=== PATIENT | female | born 1965 | race American Indian/Alaskan Native ===

== ENCOUNTER 2019-11-14 09:47 | Inpatient (IN) | payer MEDICAID, OTHER ==
[2019-11-21 16:42] VITALS: BP 161/73
== END 2019-11-21 18:00 | disposition home or self-care (01) | DRG 622 ==
LOC: ED 09:47 → 4A 14:58
PROVIDERS: ADMIT Internal Medicine; ATTEND Internal Medicine
PROC: 0JBQ0ZZ Excision of Right Foot Subcutaneous Tissue and Fascia, Open Approach (ICD-10-PCS; 2019-11-16)
PROC: 4A033R1 Measurement of Arterial Saturation, Peripheral, Percutaneous Approach (ICD-10-PCS; principal; 2019-11-20)
DX: E11.69 Type 2 diabetes mellitus with other specified complication (principal); I50.43 Acute on chronic combined systolic (congestive) and diastolic (congestive) heart failure; J96.01 Acute respiratory failure with hypoxia; J96.02 Acute respiratory failure with hypercapnia; Z68.41 Body mass index [BMI] 40.0-44.9, adult; M86.8X7 Other osteomyelitis, ankle and foot; L02.611 Cutaneous abscess of right foot; E66.2 Morbid (severe) obesity with alveolar hypoventilation; E11.628 Type 2 diabetes mellitus with other skin complications; I11.0 Hypertensive heart disease with heart failure; D64.9 Anemia, unspecified; E87.6 Hypokalemia; J45.909 Unspecified asthma, uncomplicated; E11.65 Type 2 diabetes mellitus with hyperglycemia; K21.9 Gastro-esophageal reflux disease without esophagitis; Z90.49 Acquired absence of other specified parts of digestive tract; Z79.84 Long term (current) use of oral hypoglycemic drugs
CPT/HCPCS: 36415; 36600; 71045; 73721; 80048; 80202; 82550; 82553; 82607; 82747; 82803; 82962; 83550; 84484; 85025; 85027; 85652; 86140; 87040; 87075; 87116; 90686; 93005; 93010; 93306; 96374; G0378; A6260; A9270-GY; J0295; J0692; J0696; J1170; J1644; J1815; J1940; J2250; J2405; J2704; J3010; J3370; J7040

== ENCOUNTER 2019-12-03 11:13 | Outpatient (CLI) | payer OTHER ==
[2019-12-03 12:02] LABS: Basophils % (Auto) 0.7 % (0.0-1.8); Eosinophils # (Auto) 0.3 K/mm3 (0.0-0.4); Eosinophils % (Auto) 5.6 % (0.0-4.3); Lymphocytes # (Auto) 0.9 K/mm3 (1.2-5.4); Lymphocytes % (Auto) 17.3 % (13.4-35.0); Mean Corpuscular HGB Conc 32 % (30-34); Mean Corpuscular Volume 82 fl (79-97); Monocytes # (Auto) 0.4 K/mm3 (0.0-0.8); Platelet Count 432 K/mm3 (140-440); Red Blood Count 3.77 M/mm3 (3.65-5.03); Red Cell Distribution Width 15.2 % (13.2-15.2)
[2019-12-03 12:24] LABS: Alanine Aminotransferase 14 units/L (7-56); Albumin 2.8 g/dL (3.9-5); Blood Urea Nitrogen 26 mg/dL (7-17)
[2019-12-03 12:25] LABS: Bilirubin,Direct < 0.2 mg/dL (0-0.2)
== END 2019-12-03 11:14 | disposition home or self-care (01) ==
LOC: LAB 11:13
PROVIDERS: ATTEND Internal Medicine Infectious Disease
DX: M86.8X7 Other osteomyelitis, ankle and foot (principal)
CPT/HCPCS: 36415; 80076; 82565; 84520; 85025

== ENCOUNTER 2019-12-05 18:21 | Emergency (ER) | payer SELFPAY ==
[2019-12-06] MEDS ORDERED: IBUPROFEN 800 MG TAB PO ONE (00:21)
[2019-12-06] MEDS ORDERED: oxyCODONE /ACETAMINOPHEN 5-325MG TAB PO ONE (00:21)
[2019-12-06] MEDS ORDERED: ONDANSETRON 4 MG ODT TAB PO ONE (00:21)
--- NOTE | 2019-12-06 01:15 | XRay Report ---
EXAMINATION: Left ankle radiograph, 3 views, 12/06/2019 CLINICAL INFORMATION: Left ankle pain after fall COMPARISON: None. FINDINGS: There is no evidence of acute fracture or dislocation of the left ankle. Signer Name: Megha Pathak MD Signed: 12/06/2019 1:11 AM Workstation Name: [id number]
--- NOTE | 2019-12-06 01:17 | XRay Report ---
EXAMINATION: Left foot radiograph, 3 views, 12/06/2019 CLINICAL INFORMATION: Left foot pain after trauma COMPARISON: None. FINDINGS: There is no evidence of acute bony fracture of the left foot. Marked generalized soft tissu e swelling is noted. Signer Name: Megha Pathak MD Signed: 12/06/2019 1:12 AM Workstation Name: [id number]
--- NOTE | 2019-12-06 01:55 | Emergency Department Report ---
ED Fall HPI - General Chief Complaint: Fall Stated Complaint: L LEG PAIN Source: patient Mode of arrival: Ambulatory - History of Present Illness Initial Comments: Patient is a 54-year-old [place] female with a history of hypertension, [id number] diabetes, and chronic diabetic neuropathy with recurrent abscess who presents to the ED with a complaint of acute onset persistent severe left ankle and foot pain with swelling after she slipped and fell down at home about 12 hours ago. Patient states that the pain is worsened in the last 8 hours. Patient stated that she is unable to bear weight on the left foot because of pain. Patient denies head or neck injuries, back pain, hip pain, knee pain, dizziness, syncope, chest pain or shortness of breath, neck pain or change in vision and abdominal pain, numbness and tingling or weakness of lower extremities bilaterally. MD Complaint: fall, other (left ankle and foot pain with swelling) -: Sudden, hour(s) (12) Fall From: other (slipped and fell down on floor) When Fall Occurred: other (over 12 hours) Place Fall Occurred: home Loss of Consciousness: none Prolonged Down Time?: no Symptoms Prior to Fall: none Location: other (left foot) Location - Extremities: Left: Ankle (left ankle and foot), Foot (left foot and ankle) Severity: severe Severity scale (0 -10): 8 Quality: sharp, aching Context: tripped/slipped Associated Symptoms: denies. denies: headache, neck pain, numbness, chest paint, shortness of breath, abdominal pain, hematuria, unable to walk, lightheaded, vertigo - Related Data Home Medications Medication Instructions Recorded Confirmed Last Taken Metformin HCl [Glucophage] 1,000 mg PO BID 07/05/15 11/14/19 07/05/15 Albuterol INH(or & Nicu Only) 2 puff IH QID PRN 11/14/19 11/14/19 Unknown [ProAir HFA Inhaler] Aspirin [Aspirin BABY CHEW TAB] 81 mg PO QDAY 11/14/19 11/14/19 Unknown Esomeprazole Magnesium [NexIUM] 40 mg PO QDAY PRN 11/14/19 11/14/19 Unknown Ferrous Sulfate [Feosol 325 MG tab] 325 mg PO QDAY 11/14/19 11/14/19 Unknown Insulin NPH/Regular [NovoLIN 70/30] 33 unit SQ BIDDIAB 11/14/19 11/14/19 Unknown Losartan [Cozaar] 50 mg PO QDAY 11/14/19 11/14/19 Unknown Metoclopramide [Reglan TAB] 10 mg PO Q6H PRN 11/14/19 11/14/19 Unknown Potassium Chloride 20 meq PO QDAY 11/14/19 11/14/19 Unknown Rosuvastatin Calcium 40 mg PO QDAY 11/14/19 11/14/19 Unknown Sertraline [Zoloft] 100 mg PO QDAY 11/14/19 11/14/19 Unknown Torsemide [Demadex] 20 mg PO BID 11/14/19 11/14/19 Unknown amLODIPine 10 mg PO DAILY 11/14/19 11/14/19 Unknown carvediloL [Coreg] 12.5 mg PO BID 11/14/19 11/14/19 Unknown Previous Rx's Medication Instructions Recorded Last Taken Type traMADoL [Ultram 50 MG tab] 25 mg PO Q6H PRN #14 tablet 11/21/19 Unknown Rx HYDROcodone/APAP 7.5-325 [Benedict 1 each PO Q6HR PRN #12 tablet 12/06/19 Unknown Rx 7.5/325] Ibuprofen [Motrin] 800 mg PO Q8HR PRN #24 tablet 12/06/19 Unknown Rx Allergies Allergy/AdvReac Type Severity Reaction Status Date / Time codeine Allergy Vomiting Verified 07/05/15 11:49 ED Review of Systems ROS: Stated complaint: L LEG PAIN Other details as noted in HPI Constitutional: denies: chills, fever Eyes: denies: eye pain, eye discharge, vision change ENT: denies: ear pain, throat pain Respiratory: denies: cough, shortness of breath, wheezing Cardiovascular: denies: chest pain, palpitations Endocrine: no symptoms reported Gastrointestinal: denies: abdominal pain, nausea, diarrhea Genitourinary: denies: urgency, dysuria, discharge Musculoskeletal: joint swelling (left ankle and foot), arthralgia (left ankle and foot). denies: back pain Skin: denies: rash, lesions Neurological: denies: headache, weakness, paresthesias Psychiatric: denies: anxiety, depression Hematological/Lymphatic: denies: easy bleeding, easy bruising ED Past Medical Hx - Past Medical History Hx Hypertension: Yes Hx Heart Attack/AMI: No Hx Congestive Heart Failure: Yes Hx Diabetes: Yes Hx Deep Vein Thrombosis: No Hx Liver Disease: No Hx Renal Disease: No Hx Sickle Cell Disease: No Hx Seizures: No Hx Asthma: Yes (inhaler used past tuesday) Hx COPD: No Additional medical history: obesity - Surgical History Hx Pacemaker: No Hx Internal Defibrillator: No Hx Cholecystectomy: Yes Additional Surgical History: c/s x 2. gastric stappling - Social History Smoking Status: Former Smoker - Medications Home Medications: Home Medications Medication Instructions Recorded Confirmed Last Taken Type Metformin HCl [Glucophage] 1,000 mg PO BID 07/05/15 11/14/19 07/05/15 History Albuterol INH(or & Nicu Only) 2 puff IH QID PRN 11/14/19 11/14/19 Unknown History [ProAir HFA Inhaler] Aspirin [Aspirin BABY CHEW TAB] 81 mg PO QDAY 11/14/19 11/14/19 Unknown History Esomeprazole Magnesium [NexIUM] 40 mg PO QDAY PRN 11/14/19 11/14/19 Unknown History Ferrous Sulfate [Feosol 325 MG tab] 325 mg PO QDAY 11/14/19 11/14/19 Unknown History Insulin NPH/Regular [NovoLIN 70/30] 33 unit SQ BIDDIAB 11/14/19 11/14/19 Unknown History Losartan [Cozaar] 50 mg PO QDAY 11/14/19 11/14/19 Unknown History Metoclopramide [Reglan TAB] 10 mg PO Q6H PRN 11/14/19 11/14/19 Unknown History Potassium Chloride 20 meq PO QDAY 11/14/19 11/14/19 Unknown History Rosuvastatin Calcium 40 mg PO QDAY 11/14/19 11/14/19 Unknown History Sertraline [Zoloft] 100 mg PO QDAY 11/14/19 11/14/19 Unknown History Torsemide [Demadex] 20 mg PO BID 11/14/19 11/14/19 Unknown History amLODIPine 10 mg PO DAILY 11/14/19 11/14/19 Unknown History carvediloL [Coreg] 12.5 mg PO BID 11/14/19 11/14/19 Unknown History traMADoL [Ultram 50 MG tab] 25 mg PO Q6H PRN #14 tablet 11/21/19 Unknown Rx HYDROcodone/APAP 7.5-325 [Benedict 1 each PO Q6HR PRN #12 tablet 12/06/19 Unknown Rx 7.5/325] Ibuprofen [Motrin] 800 mg PO Q8HR PRN #24 tablet 12/06/19 Unknown Rx ED Physical Exam - General Limitations: Physical Limitation General appearance: alert, in no apparent distress - Head Head exam: Present: atraumatic, normocephalic, normal inspection - Eye Eye exam: Present: normal appearance, PERRL, EOMI Pupils: Present: normal accommodation - ENT ENT exam: Present: normal exam, normal orophraynx, mucous membranes moist, TM's normal bilaterally, normal external ear exam - Neck Neck exam: Present: normal inspection, full ROM - Respiratory Respiratory exam: Present: normal lung sounds bilaterally. Absent: respiratory distress, wheezes, rales, rhonchi, chest wall tenderness, accessory muscle use, decreased breath sounds - Cardiovascular Cardiovascular Exam: Present: regular rate, normal rhythm, normal heart sounds. Absent: systolic murmur, diastolic murmur, rubs, gallop - GI/Abdominal GI/Abdominal exam: Present: soft, normal bowel sounds. Absent: tenderness, guarding, hyperactive bowel sounds, hypoactive bowel sounds - Extremities Exam Extremities exam: Present: normal inspection, full ROM (Limited range of motion due to pain of left ankle and foot), tenderness (palpable left ankle and foot tenderness with swelling and limited range of motion due to pain), normal capillary refill, joint swelling (left ankle and foot swelling) - Back Exam Back exam: Present: normal inspection, full ROM. Absent: tenderness, muscle spasm, paraspinal tenderness - Neurological Exam Neurological exam: Present: alert, oriented X3, CN II-XII intact, normal gait, reflexes normal - Psychiatric Psychiatric exam: Present: normal affect, normal mood - Skin Skin exam: Present: warm, dry, intact, normal color. Absent: rash ED Course Vital Signs 12/05/19 19:37 Temperature 97.8 F Pulse Rate 107 H Respiratory 20 Rate Blood Pressure 161/87 O2 Sat by Pulse 100 Oximetry ED Medical Decision Making - Radiology Data Radiology results: report reviewed, image reviewed Left ankle x-ray shows no acute fractures or subluxations. Left foot x-ray shows no acute fractures or subluxations. - Medical Decision Making This is a 54-year-old female who presented to the ED with left ankle foot and swelling after she slipped and twisted left ankle at home over 12 hours ago. In the ED, patient is alert and oriented 3 and is not in distress. Patient appears to be in pain. Left ankle x-ray shows no acute fractures or subluxations but soft tissue swelling. Left foot x-ray also shows no acute fracture and subluxation but soft tissue swelling. Patient was treated for pain in the ED and on reevaluation, patient's pain is well-controlled with medications. Patient's left ankle and foot was splinted with Leobardo wrap and postop shoe respectively. Patient was discharged home on pain medication and advised to follow-up with her primary care physician in 7-10 days for reevaluation or return to the ED immediately if symptoms get worse. - Differential Diagnosis ankle fracture; ankle sprain; foot fracture; muscle strain Critical care attestation.: If time is entered above; I have spent that time in minutes in the direct care of this critically ill patient, excluding procedure time. ED Disposition Clinical Impression: Severe sprain of left ankle Qualifiers: Encounter type: initial encounter Qualified Code(s): S93.402A - Sprain of unspecified ligament of left ankle, initial encounter Sprain of left foot Qualifiers: Encounter type: initial encounter Qualified Code(s): S93.602A - Unspecified sprain of left foot, initial encounter Disposition: TO HOME OR SELFCARE Is pt being admited?: No Does the pt Need Aspirin: No Condition: Stable Instructions: Ankle Sprain (ED), Foot Sprain (ED), Foot Contusion (ED) Additional Instructions: Take medications with food, drink plenty of fluids and follow up with your primary care physician in 7-10 days for reevaluation. Return to the ED immediately if symptoms get worse. Prescriptions: Ibuprofen [Motrin] 800 mg PO Q8HR PRN #24 tablet PRN Reason: Pain , Severe (7-10) HYDROcodone/APAP 7.5-325 [Benedict 7.5/325] 1 each PO Q6HR PRN #12 tablet PRN Reason: Pain Referrals: CAROL LEROY MD [Staff Physician] - 7-10 days Time of Disposition: 01:59 Print Language: SPANISH
[2019-12-06 03:57] VITALS: BP 138/87
== END 2019-12-06 02:20 | disposition home or self-care (01) ==
LOC: ED 18:21
DX: S93.402A Sprain of unspecified ligament of left ankle, initial encounter (principal); S93.602A Unspecified sprain of left foot, initial encounter; I11.0 Hypertensive heart disease with heart failure; I50.9 Heart failure, unspecified; W18.30XA Fall on same level, unspecified, initial encounter; Y93.89 Activity, other specified; Y92.89 Other specified places as the place of occurrence of the external cause; Y99.8 Other external cause status
CPT/HCPCS: 99283; Q0162

== ENCOUNTER 2019-12-12 13:26 | Outpatient (CLI) | payer OTHER ==
[2019-12-12 13:56] LABS: Basophils # (Auto) 0.1 K/mm3 (0.0-0.1); Basophils % (Auto) 0.9 % (0.0-1.8); Eosinophils # (Auto) 0.4 K/mm3 (0.0-0.4); Eosinophils % (Auto) 5.6 % (0.0-4.3); Hematocrit 31.8 % (30.3-42.9); Hemoglobin 10.4 gm/dl (10.1-14.3); Lymphocytes # (Auto) 1.4 K/mm3 (1.2-5.4); Mean Corpuscular HGB Conc 33 % (30-34); Mean Corpuscular Volume 80 fl (79-97); Monocytes # (Auto) 0.5 K/mm3 (0.0-0.8); Monocytes % (Auto) 6.9 % (0.0-7.3); Platelet Count 398 K/mm3 (140-440); Red Blood Count 3.97 M/mm3 (3.65-5.03); Red Cell Distribution Width 14.6 % (13.2-15.2)
[2019-12-12 14:22] LABS: Alanine Aminotransferase 16 units/L (7-56); Albumin 3.1 g/dL (3.9-5); Blood Urea Nitrogen 32 mg/dL (7-17)
[2019-12-12 14:24] LABS: Bilirubin,Direct < 0.2 mg/dL (0-0.2)
== END 2019-12-12 13:27 | disposition home or self-care (01) ==
LOC: LAB 13:26
PROVIDERS: ATTEND Internal Medicine Infectious Disease
DX: M86.8X7 Other osteomyelitis, ankle and foot (principal); G61.0 Guillain-Barre syndrome
CPT/HCPCS: 36415; 80076; 82565; 84520; 85025

== ENCOUNTER 2019-12-17 10:42 | Outpatient (CLI) | payer OTHER ==
[2019-12-17 11:09] LABS: Basophils % (Auto) 0.6 % (0.0-1.8); Eosinophils # (Auto) 0.3 K/mm3 (0.0-0.4); Eosinophils % (Auto) 4.1 % (0.0-4.3); Hematocrit 31.5 % (30.3-42.9); Hemoglobin 10.3 gm/dl (10.1-14.3); Lymphocytes # (Auto) 1.1 K/mm3 (1.2-5.4); Mean Corpuscular HGB Conc 33 % (30-34); Mean Corpuscular Volume 81 fl (79-97); Monocytes # (Auto) 0.4 K/mm3 (0.0-0.8); Monocytes % (Auto) 5.4 % (0.0-7.3); Platelet Count 413 K/mm3 (140-440); Red Cell Distribution Width 15.1 % (13.2-15.2)
[2019-12-17 11:32] LABS: Alanine Aminotransferase 12 units/L (7-56); Blood Urea Nitrogen 22 mg/dL (7-17)
[2019-12-17 11:37] LABS: Bilirubin,Direct < 0.2 mg/dL (0-0.2)
== END 2019-12-17 10:43 | disposition home or self-care (01) ==
LOC: LAB 10:42
PROVIDERS: ATTEND Internal Medicine Infectious Disease
DX: M86.8X7 Other osteomyelitis, ankle and foot (principal); G61.0 Guillain-Barre syndrome
CPT/HCPCS: 36415; 80076; 82565; 84520; 85025

== ENCOUNTER 2019-12-24 10:05 | Outpatient (CLI) | payer OTHER ==
[2019-12-24 10:33] LABS: Basophils # (Auto) 0.1 K/mm3 (0.0-0.1); Basophils % (Auto) 0.8 % (0.0-1.8); Eosinophils # (Auto) 0.3 K/mm3 (0.0-0.4); Eosinophils % (Auto) 3.8 % (0.0-4.3); Hematocrit 32.8 % (30.3-42.9); Hemoglobin 10.5 gm/dl (10.1-14.3); Lymphocytes # (Auto) 1.2 K/mm3 (1.2-5.4); Lymphocytes % (Auto) 16.4 % (13.4-35.0); Mean Corpuscular HGB Conc 32 % (30-34); Mean Corpuscular Volume 81 fl (79-97); Monocytes # (Auto) 0.4 K/mm3 (0.0-0.8); Monocytes % (Auto) 6.1 % (0.0-7.3); Platelet Count 421 K/mm3 (140-440); Red Blood Count 4.07 M/mm3 (3.65-5.03); Red Cell Distribution Width 15.7 % (13.2-15.2)
[2019-12-24 10:56] LABS: Alanine Aminotransferase 9 units/L (7-56); Blood Urea Nitrogen 22 mg/dL (7-17)
[2019-12-24 10:57] LABS: Bilirubin,Direct < 0.2 mg/dL (0-0.2)
== END 2019-12-24 10:06 | disposition home or self-care (01) ==
LOC: LAB 10:05
PROVIDERS: ATTEND Internal Medicine Infectious Disease
DX: M86.8X7 Other osteomyelitis, ankle and foot (principal)
CPT/HCPCS: 36415; 80076; 82565; 84520; 85025

== ENCOUNTER 2020-04-23 20:12 | Inpatient (IN) | payer OTHER ==
--- NOTE | 2020-04-23 21:12 | XRay Report ---
CHEST 2 VIEWS INDICATION / CLINICAL INFORMATION: MAIN: PRISCILLA; RLE pain, and THORPE X 2 days, pt also has SOB hx of CHF with B/L LE edema. COMPARISON: 11/20/2019 FINDINGS: SUPPORT DEVICES: None. HEART / MEDIASTINUM: No significant abnormality. LUNGS / PLEURA: No significant pulmonary or pleural abnormality. No pneumothorax. ADDITIONAL FINDINGS: No significant additional findings. IMPRESSION: No significant abnormality or change from 11/20/2019 Signer Name: Parish Young MD FACR Signed: 04/23/2020 9:08 PM Workstation Name: [id number]
[2020-04-23] MEDS ORDERED: ASPIRIN 325 MG TAB PO ONE (23:01)
[2020-04-23] MEDS ORDERED: MORPHINE 2 MG/1 ML INJ IV ONE (23:02)
--- NOTE | 2020-04-23 23:06 | Emergency Department Report ---
ED Chest Pain HPI - General Chief Complaint: Dyspnea/Respdistress Stated Complaint: LEG PAIN HEADACHE cp/sob PUI?: No Time Seen by Provider: 04/23/20 23:01 Source: patient Mode of arrival: Ambulatory Limitations: No Limitations - History of Present Illness Initial Comments: Patient is a 54-year-old female that presents emergency room with complaints of shortness of breath, chest pain, right lower extremity pain and swelling, h eadache. Patient states that her symptoms started 2 days ago. Patient states that her chest pain is in the center of her chest. Patient states it is nonradiating. Patient states that her chest pain and shortness of breath are better with rest. Patient states that her shortness of breath and chest pain are worse with exertion. Patient is having dyspnea on exertion. Patient states that her chest pain is a 6 out of 10. Patient states that her right lower extremity is a 10 out of 10. Patient states her right lower extremity pain is better with rest and worse with movement and palpation. Patient states her headache is a 2 out of 10. Patient states her headache is better with rest and worse with exertion. Patient denies neck pain. Patient denies fever and chills. Patient denies visual changes. Patient denies cough. Patient denies abdominal pain. Patient denies recent travel. Patient denies recent international travel. Patient denies exposure to the novel coronavirus. Patient denies sick contacts. Patient denies fever and chills. Patient denies cough. Patient denies diarrhea. Patient denies coming in contact with anybody with symptoms of the novel coronavirus. MD Complaint: chest pain -: Sudden Onset: during rest Pain Location: substernal, left chest Pain Radiation: none Severity: moderate Severity scale (0 -10): 6 Quality: sharp Consistency: constant Improves With: rest Worsens With: exertion re: dyspnea. denies: nausea, vomting, diaphoresis, sense of impending doom Other Symptoms: leg swelling. denies: cough, fever, syncope, rash, acid taste in mouth, palpitations, burping Treatments Prior to Arrival: none Aspirin use within the Past 7 Days: (1) Yes - Related Data On Oral Contraceptives: No Previous Rx's Medication Instructions Recorded Last Taken Type Albuterol INH(or & Nicu Only) 2 puff IH QID PRN #1 04/24/20 Unknown Rx [ProAir HFA Inhaler] Aspirin [Aspirin BABY CHEW TAB] 81 mg PO QDAY #30 04/24/20 Unknown Rx Ferrous Sulfate [Feosol 325 MG tab] 325 mg PO QDAY #30 04/24/20 Unknown Rx Insulin NPH/Regular [NovoLIN 70/30] 33 unit SQ BIDDIAB 30 Days units 04/24/20 Unknown Rx Losartan [Cozaar] 50 mg PO QDAY #30 04/24/20 Unknown Rx Metformin HCl [Glucophage] 1,000 mg PO BID #60 04/24/20 Unknown Rx Metoclopramide [Reglan TAB] 10 mg PO Q6H PRN #30 04/24/20 Unknown Rx NIFEdipine XL [Procardia Xl] 60 mg PO QDAY #30 tablet 04/24/20 Unknown Rx Pantoprazole [Protonix TAB] 40 mg PO QDAY #30 tablet 04/24/20 Unknown Rx Rosuvastatin Calcium 40 mg PO QDAY #30 04/24/20 Unknown Rx Torsemide [Demadex] 20 mg PO BID #60 04/24/20 Unknown Rx carvediloL [Coreg] 12.5 mg PO BID #60 04/24/20 Unknown Rx Insulin NPH/Regular [NovoLIN 70/30] 35 unit SUB-Q BIDDIAB 30 Days 04/26/20 Unknown Rx Lispro Insulin [HumaLOG] See Protocol SUB-Q ACHS 30 Days 04/26/20 Unknown Rx Melatonin [Melatonin 5MG TAB] 10 mg PO QHS@2100 #14 tablet 04/26/20 Unknown Rx Sertraline [Zoloft] 50 mg PO QDAY #30 tablet 04/26/20 Unknown Rx traZODone [Desyrel] 50 mg PO QHS #30 tab 04/26/20 Unknown Rx Allergies Allergy/AdvReac Type Severity Reaction Status Date / Time codeine Allergy Vomiting Verified 07/05/15 11:49 Heart Score - HEART Score History: Moderately suspicious EKG: Non-specific Age: 45-65 Risk factors: > 3 risk factors or hx of atherosclerotic disease Troponin: < normal limit HEART Score: 5 ED Review of Systems ROS: Stated complaint: LEG PAIN HEADACHE ABD PAIN Other details as noted in HPI Constitutional: denies: chills, fever Eyes: denies: eye pain, eye discharge, vision change ENT: denies: ear pain, throat pain Respiratory: shortness of breath, SOB with exertion, SOB at rest. denies: cough, wheezing Cardiovascular: chest pain, dyspnea on exertion. denies: palpitations Endocrine: no symptoms reported Gastrointestinal: denies: abdominal pain, nausea, diarrhea Genitourinary: denies: urgency, dysuria, discharge Musculoskeletal: denies: back pain, joint swelling, arthralgia Skin: denies: rash, lesions Neurological: headache. denies: weakness, paresthesias Psychiatric: denies: anxiety, depression Hematological/Lymphatic: denies: easy bleeding, easy bruising ED Past Medical Hx - Past Medical History Previous Medical History?: Yes Hx Hypertension: Yes Hx Heart Attack/AMI: No Hx Congestive Heart Failure: Yes Hx Diabetes: Yes Hx Deep Vein Thrombosis: No Hx Liver Disease: No Hx Renal Disease: No Hx Sickle Cell Disease: No Hx Seizures: No Hx Asthma: Yes (inhaler used past tuesday) Hx COPD: No Additional medical history: obesity - Surgical History Past Surgical History?: Yes Hx Pacemaker: No Hx Internal Defibrillator: No Hx Cholecystectomy: Yes Additional Surgical History: c/s x 2. gastric stappling - Family History Family history: no significant - Social History Smoking Status: Former Smoker Substance Use Type: None - Medications Home Medications: Home Medications Medication Instructions Recorded Confirmed Last Taken Type Albuterol INH(or & Nicu Only) 2 puff IH QID PRN #1 04/24/20 Unknown Rx [ProAir HFA Inhaler] Aspirin [Aspirin BABY CHEW TAB] 81 mg PO QDAY #30 04/24/20 Unknown Rx Ferrous Sulfate [Feosol 325 MG tab] 325 mg PO QDAY #30 04/24/20 Unknown Rx Insulin NPH/Regular [NovoLIN 70/30] 33 unit SQ BIDDIAB 30 Days units 04/24/20 Unknown Rx Losartan [Cozaar] 50 mg PO QDAY #30 04/24/20 Unknown Rx Metformin HCl [Glucophage] 1,000 mg PO BID #60 04/24/20 Unknown Rx Metoclopramide [Reglan TAB] 10 mg PO Q6H PRN #30 04/24/20 Unknown Rx NIFEdipine XL [Procardia Xl] 60 mg PO QDAY #30 tablet 04/24/20 Unknown Rx Pantoprazole [Protonix TAB] 40 mg PO QDAY #30 tablet 04/24/20 Unknown Rx Rosuvastatin Calcium 40 mg PO QDAY #30 04/24/20 Unknown Rx Torsemide [Demadex] 20 mg PO BID #60 04/24/20 Unknown Rx carvediloL [Coreg] 12.5 mg PO BID #60 04/24/20 Unknown Rx Insulin NPH/Regular [NovoLIN 70/30] 35 unit SUB-Q BIDDIAB 30 Days 04/26/20 Unknown Rx Lispro Insulin [HumaLOG] See Protocol SUB-Q ACHS 30 Days 04/26/20 Unknown Rx Melatonin [Melatonin 5MG TAB] 10 mg PO QHS@2100 #14 tablet 04/26/20 Unknown Rx Sertraline [Zoloft] 50 mg PO QDAY #30 tablet 04/26/20 Unknown Rx traZODone [Desyrel] 50 mg PO QHS #30 tab 04/26/20 Unknown Rx ED Physical Exam - General Limitations: No Limitations General appearance: alert, in no apparent distress - Head Head exam: Present: atraumatic, normocephalic - Eye Eye exam: Present: normal appearance - ENT ENT exam: Present: mucous membranes moist - Neck Neck exam: Present: normal inspection - Respiratory Respiratory exam: Present: normal lung sounds bilaterally. Absent: respiratory distress, wheezes, rales - Cardiovascular Cardiovascular Exam: Present: regular rate, normal rhythm. Absent: systolic murmur, diastolic murmur, rubs, gallop - GI/Abdominal GI/Abdominal exam: Present: soft, normal bowel sounds - Extremities Exam Extremities exam: Present: normal inspection - Back Exam Back exam: Present: normal inspection - Neurological Exam Neurological exam: Present: alert, oriented X3 - Psychiatric Psychiatric exam: Present: normal affect, normal mood - Skin Skin exam: Present: warm, dry, intact, normal color. Absent: rash ED Course Vital Signs 04/23/20 04/23/20 04/23/20 20:20 22:56 23:30 Temperature 98.6 F Pulse Rate 99 H 88 Respiratory 18 17 Rate Blood Pressure 176/90 174/74 Blood Pressure [Right] O2 Sat by Pulse 100 100 99 Oximetry 04/24/20 04/24/20 04/24/20 00:00 00:16 02:58 Temperature Pulse Rate 92 H 104 H 98 H Respiratory 15 14 12 Rate Blood Pressure 174/74 167/90 Blood Pressure 149/86 [Right] O2 Sat by Pulse 99 100 99 Oximetry 05/28/20 05/28/20 05/28/20 03:00 03:31 03:45 Temperature Pulse Rate 97 H 97 H 95 H Respiratory 9 L 12 17 Rate Blood Pressure 173/88 165/91 165/91 Blood Pressure [Right] O2 Sat by Pulse 100 98 100 Oximetry - Reevaluation(s) Reevaluation #1: Patient states her chest pain and shortness of breath are better with the morphine. Patient states her headache has resolved. 04/24/20 00:19 Reevaluation #2: I discussed all results with patient. I discussed plan of care with patient. Patient agrees with plan of care and admission. Patient to be admitted to the hospitalist service. 04/24/20 02:19 - Consultations Consultation #1: Hospitalist consulted for admission. Hospitalist to admit patient. 04/24/20 02:19 ED Medical Decision Making - Lab Data Result diagrams: 04/24/20 03:03 04/26/20 08:08 - EKG Data -: EKG Interpreted by Me EKG shows normal: sinus rhythm, axis, intervals, QRS complexes, ST-T waves Rate: normal - Radiology Data Radiology results: report reviewed, image reviewed CHEST 2 VIEWS INDICATION / CLINICAL INFORMATION: MAIN: PRISCILLA; RLE pain, and THORPE X 2 days, pt also has SOB hx of CHF with B/L LE edema. COMPARISON: 11/20/2019 FINDINGS: SUPPORT DEVICES: None. HEART / MEDIASTINUM: No significant abnormality. LUNGS / PLEURA: No significant pulmonary or pleural abnormality. No pneumothorax. ADDITIONAL FINDINGS: No significant additional findings. IMPRESSION: No significant abnormality or change from 11/20/2019 DUPLEX DOPPLER LOWER EXTREMITY VEINS, RIGHT INDICATION: Right leg pain. TECHNIQUE: Duplex doppler imaging was performed through the veins of the right lower extremity using venous compression and other maneuvers. COMPARISON: None FINDINGS: Common Femoral vein: Negative. Superficial Femoral vein: Negative. Popliteal vein: Negative. Calf veins: Negative. Additional findings: None. IMPRESSION: 1. No sonographic evidence for DVT in the right lower extremity. - Medical Decision Making She is a 54-year-old female that presents emergency room with multiple complaints. Patient complaints include shortness of breath, dyspnea on exertion, chest pain, headache, right leg swelling and pain. Patient has a significant past medical history for CHF, diabetes. Patient has high risk factors for CAD. Patient heart score is elevated. Patient labs are unremarkable except for renal insufficiency, elevated d-dimer. Patient had an ultrasound of the right lower extremity due to her complaints and the elevated d-dimer. Patient's ultrasound was negative for DVT. Patient's chest x-ray negative for acute findings. Patient also had a CTA of the chest. The benefit outweigh the risks with a CTA and the renal function. Patient was given a 500 cc bolus after the CTA. Patient's CTA is negative for PE. Patient admitted to the hospital service to rule out ACS and further evaluation treatment. - Differential Diagnosis sob, cp. pe. acs. chf, pna Critical Care Time: Yes Critical care time in (mins) excluding proc time.: 35 Critical care attestation.: If time is entered above; I have spent that time in minutes in the direct care of this critically ill patient, excluding procedure time. Critical Care Time: 35 minutes ED Disposition Clinical Impression: SOB (shortness of breath), HOPKINS (dyspnea on exertion), D-dimer, elevated, Leg swelling Chest pain Qualifiers: Chest pain type: unspecified Qualified Code(s): R07.9 - Chest pain, unspecified Lower extremity pain Qualifiers: Laterality: right Qualified Code(s): M79.604 - Pain in right leg Disposition: DC-09 OP ADMIT IP TO THIS HOSP Is pt being admited?: Yes Does the pt Need Aspirin: No Condition: Stable Time of Disposition: 02:22
[2020-04-23 23:32] LABS: Basophils % (Auto) 0.6 % (0.0-1.8); Eosinophils # (Auto) 0.2 K/mm3 (0.0-0.4); Eosinophils % (Auto) 2.5 % (0.0-4.3); Hematocrit 35.5 % (30.3-42.9); Lymphocytes % (Auto) 28.6 % (13.4-35.0); Mean Corpuscular HGB Conc 33 % (30-34); Mean Corpuscular Volume 83 fl (79-97); Monocytes # (Auto) 0.4 K/mm3 (0.0-0.8); Monocytes % (Auto) 5.6 % (0.0-7.3); Platelet Count 400 K/mm3 (140-440); Red Blood Count 4.27 M/mm3 (3.65-5.03); Red Cell Distribution Width 13.9 % (13.2-15.2)
[2020-04-23 23:34] LABS: Hemoglobin 11.8 gm/dl (10.1-14.3)
[2020-04-23 23:49] LABS: Albumin 3.3 g/dL (3.9-5)
[2020-04-23 23:52] LABS: INR 0.9 (0.87-1.13); Partial Thromboplastin Time 30.1 Sec. (24.2-36.6)
--- NOTE | 2020-04-24 02:09 | Vascular Lab Report ---
DUPLEX DOPPLER LOWER EXTREMITY VEINS, RIGHT INDICATION: Right leg pain. TECHNIQUE: Duplex doppler imaging was performed through the veins of the right lower extremity using venous comp ression and other maneuvers. COMPARISON: None FINDINGS: Common Femoral vein: Negative. Superficial Femoral vein: Negative. Popliteal vein: Negative. Calf veins: Negative. Additional findings: None. IMPRESSION: 1. No sonographic evidence for DVT in the right lower extremity. Signer Name: Megha Pathak MD Signed: 04/24/2020 2:05 AM Workstation Name: [id number]
[2020-04-24] MEDS ORDERED: SODIUM CHLORIDE 0.9% 500 ML 500 ML IV ONE ×2 (02:18→14:44)
[2020-04-24] MEDS ORDERED: DEXTROSE 50% IN WATER (25GM) 50 ML SYRINGE IV PRN (02:46)
[2020-04-24] MEDS ORDERED: NITROGLYCERIN 0.4 MG TAB SUBL SL PRN (02:46)
--- NOTE | 2020-04-24 02:48 | Cat Scan Report ---
CTA CHEST WITH IV CONTRAST INDICATION: Shortness of breath. TECHNIQUE: Axial CT images were obtained through the chest after injection of IV contrast. Coronal oblique 2-D reconstruction images were produced. 3 plane MIP reconstruction images were produced at an [employer] workstation. All CTs at this facility utilize dose reduction techniques including automated expos ure control, iterative reconstruction and weight based dosing when appropriate to reduce patient radi ation dose to as low as reasonable achievable. COMPARISON: Chest radiograph, 04/23/2020 FINDINGS: No filling defects are visualized within the central or segmental pulmonary arteries to suggest pulmo nary embolism. The heart is normal in size. The thoracic aorta appears normal in caliber. Evaluation of the lung parenchyma demonstrates no evidence of acute abnormality. Limited imaging of the upper abdomen demonstrates postsurgical changes of the stomach. Evaluation of bony structures demonstrates mild to moderate bony degenerative changes of the thoracic spine. IMPRESSION: 1. No evidence of pulmonary embolism or acute parenchymal process. Signer Name: Megha aPthak MD Signed: 04/24/2020 2:44 AM Workstation Name: [id number]
[2020-04-24 03:13] LABS: Basophils % (Auto) 0.5 % (0.0-1.8); Eosinophils # (Auto) 0.2 K/mm3 (0.0-0.4); Hematocrit 34.3 % (30.3-42.9); Hemoglobin 11.2 gm/dl (10.1-14.3); Lymphocytes # (Auto) 1.9 K/mm3 (1.2-5.4); Lymphocytes % (Auto) 30.4 % (13.4-35.0); Mean Corpuscular HGB Conc 33 % (30-34); Mean Corpuscular Volume 84 fl (79-97); Monocytes # (Auto) 0.4 K/mm3 (0.0-0.8); Monocytes % (Auto) 6.1 % (0.0-7.3); Platelet Count 348 K/mm3 (140-440); Red Cell Distribution Width 13.7 % (13.2-15.2)
[2020-04-24 03:36] LABS: Calcium 8.9 mg/dL (8.4-10.2)
[2020-04-24] MEDS: ONDANSETRON 4 MG/2 ML INJ IV PRN ×2 (05:35→14:28)
[2020-04-24] MEDS: HYDROmorphone 1 MG/1 ML INJ IV PRN ×3 (05:35→22:34)
[2020-04-24] MEDS: HEPARIN 5,000 UNIT/1 ML VIAL SUB-Q SCH ×3 (05:46→22:32)
[2020-04-24] MEDS ORDERED: REGADENOSON 0.4 MG/5 ML INJ IV ONE (07:04)
--- NOTE | 2020-04-24 07:33 | History and Physical Report ---
History of Present Illness Date of examination: 04/24/20 Date of admission: 04/24/20 03:00 Chief complaint: Shortness of breath Right lower extremity pain History of present illness: 54-year-old -Israeli female with known history of hypertension, diabetes mellitus presenting to the emergency room today complaining of shortness of breath and chest pain. She was initially having right lower extremity pain and swelling for about 2 days and thereafter she has been having chest pain and shortness of breath today. Chest pain is said to be midsternal and non radiating. Chest pain and shortness of breath is said to be worse on exertion and improves upon resting. On a scale of 10 chest pain was about 6/10. She denies any nausea vomiting, no diarrhea, no fever or chills, but she has had some headache. Patient denies any recent travel and no sick contacts. Work-up in the emergency room reveals elevated d-dimer however Doppler of the lower extremities and CT angiogram were unremarkable. Past History Past Medical History: diabetes, hypertension, other (Asthma) Past Surgical History: cholecystectomy, , Other (Gastric stapling) Social history: smoking (Patient is a former smoker) Family history: no significant family history Medications and Allergies Allergies Allergy/AdvReac Type Severity Reaction Status Date / Time codeine Allergy Vomiting Verified 07/05/15 11:49 Home Medications Medication Instructions Recorded Confirmed Last Taken Type Metformin HCl [Glucophage] 1,000 mg PO BID 07/05/15 11/14/19 07/05/15 History Albuterol INH(or & Nicu Only) 2 puff IH QID PRN 11/14/19 11/14/19 Unknown History [ProAir HFA Inhaler] Aspirin [Aspirin BABY CHEW TAB] 81 mg PO QDAY 11/14/19 11/14/19 Unknown History Esomeprazole Magnesium [NexIUM] 40 mg PO QDAY PRN 11/14/19 11/14/19 Unknown History Ferrous Sulfate [Feosol 325 MG tab] 325 mg PO QDAY 11/14/19 11/14/19 Unknown History Insulin NPH/Regular [NovoLIN 70/30] 33 unit SQ BIDDIAB 11/14/19 11/14/19 Unknown History Losartan [Cozaar] 50 mg PO QDAY 11/14/19 11/14/19 Unknown History Metoclopramide [Reglan TAB] 10 mg PO Q6H PRN 11/14/19 11/14/19 Unknown History Potassium Chloride 20 meq PO QDAY 11/14/19 11/14/19 Unknown History Rosuvastatin Calcium 40 mg PO QDAY 11/14/19 11/14/19 Unknown History Sertraline [Zoloft] 100 mg PO QDAY 11/14/19 11/14/19 Unknown History Torsemide [Demadex] 20 mg PO BID 11/14/19 11/14/19 Unknown History amLODIPine 10 mg PO DAILY 11/14/19 11/14/19 Unknown History carvediloL [Coreg] 12.5 mg PO BID 11/14/19 11/14/19 Unknown History traMADoL [Ultram 50 MG tab] 25 mg PO Q6H PRN #14 tablet 11/21/19 Unknown Rx HYDROcodone/APAP 7.5-325 [[place] 1 each PO Q6HR PRN #12 tablet 12/06/19 Unknown Rx 7.5/325] Ibuprofen [Motrin] 800 mg PO Q8HR PRN #24 tablet 12/06/19 Unknown Rx Active Meds: Active Medications Aspirin (Ecotrin) 325 mg PO QDAY [facility] Dextrose (D50w (25gm) Syringe) 50 ml IV Q30MIN PRN; Protocol PRN Reason: Hypoglycemia Heparin Sodium (Porcine) (Heparin) 5,000 unit SUB-Q Q8HR [facility] Last Admin: 04/24/20 05:46 Dose: 5,000 unit Documented by: Hydromorphone HCl (Dilaudid) 1 mg IV Q4H PRN PRN Reason: Pain , Severe (7-10) Last Admin: 04/24/20 05:35 Dose: 1 mg Documented by: Insulin Human Lispro (Humalog) 0 unit SUB-Q [facility]; Protocol Nitroglycerin (Nitrostat) 0.4 mg SL Q5M PRN PRN Reason: Chest Pain Ondansetron HCl (Zofran) 4 mg IV Q6H PRN PRN Reason: Nausea And Vomiting Last Admin: 04/24/20 05:35 Dose: 4 mg Documented by: Sodium Chloride (Sodium Chloride Flush Syringe 10 Ml) 10 ml IV PRN PRN PRN Reason: LINE FLUSH Review of Systems Constitutional: no fever, no chills Ears, nose, mouth and throat: no sore throat, no vertigo Cardiovascular: chest pain, no palpitations Respiratory: shortness of breath, no cough Gastrointestinal: no nausea, no vomiting, no diarrhea Genitourinary Female: no dysuria, no hematuria Integumentary: no rash, no pruritis Neurological: no headaches, no confusion Psychiatric: no anxiety, no confusion Exam - Constitutional Vitals: Temp Pulse Resp BP Pulse Ox 98.0 F 95 H 18 177/79 100 04/24/20 05:32 04/24/20 05:15 04/24/20 05:35 04/24/20 05:32 04/24/20 05:15 General appearance: Present: no acute distress, obese - EENT Eyes: Present: PERRL, EOM intact ENT: hearing intact, clear oral mucosa, dentition normal - Neck Neck: Present: supple, normal ROM - Respiratory Respiratory effort: normal Respiratory: bilateral: CTA - Cardiovascular Rhythm: regular Heart Sounds: Present: S1 & S2 - Extremities Extremities: no ischemia, Full ROM Extremity abnormal: edema, ulceration (Healing wound on the plantar aspect of the second toe of right foot, no obvious drainage) Peripheral Pulses: within normal limits (Trace bilateral ankle edema) - Abdominal General gastrointestinal: Present: soft, non-tender, tender, normal bowel sounds - Integumentary Integumentary: Present: clear, warm, dry - Musculoskeletal Musculoskeletal: strength equal bilaterally - Psychiatric Psychiatric: appropriate mood/affect, intact judgment & insight, cooperative - Neurologic Neurologic: CNII-XII intact, moves all extremities HEART Score - HEART Score EKG: Non-specific Age: 45-65 Risk factors: > 3 risk factors or hx of atherosclerotic disease Troponin: Troponin T 0.011 ng/mL (0.00-0.029) 04/24/20 02:55 Troponin: < normal limit Results - Labs CBC & Chem 7: 04/24/20 03:03 04/24/20 03:03 Labs: Abnormal lab results 04/23/20 04/23/20 04/24/20 Range/Units 22:52 23:26 03:03 MCH 27 L (28-32) pg PT 12.0 L (12.2-14.9) Sec. D-Dimer 318.87 H (0-234) ng/mlDDU Sodium 130 L (137-145) mmol/L Chloride 88.8 L (98-107) mmol/L BUN 38 H (7-17) mg/dL Creatinine 1.4 H (0.7-1.2) mg/dL Glucose 470 H (65-100) mg/dL Albumin 3.3 L (3.9-5) g/dL /28/20 Range/Units 03:03 MCH (28-32) pg PT (12.2-14.9) Sec. D-Dimer (0-234) ng/mlDDU Sodium 131 L (137-145) mmol/L Chloride 92.2 L (98-107) mmol/L BUN 35 H (7-17) mg/dL Creatinine 1.3 H (0.7-1.2) mg/dL Glucose 433 H (65-100) mg/dL Albumin (3.9-5) g/dL Assessment and Plan - Patient Problems (1) Chest pain Current Visit: Yes Status: Acute Qualifiers: Chest pain type: unspecified Qualified Code(s): R07.9 - Chest pain, unspecified Plan to address problem: We will admit patient and place patient on telemetry. We will follow-up on serial cardiac enzymes. Patient placed on aspirin daily, sublingual nitroglycerin and IV morphine as needed for chest pain. Will request cardiology evaluation (2) Diabetic infection of right foot Current Visit: No Status: Acute Plan to address problem: We will place a consult to wound care team for evaluation. (3) HTN (hypertension) Current Visit: No Status: Chronic Qualifiers: Hypertension type: essential hypertension Qualified Code(s): I10 - Essential (primary) hypertension Plan to address problem: We will resume routine home medication and monitor vital signs closely (4) DVT prophylaxis Current Visit: No Status: Acute Plan to address problem: Patient placed on subcutaneous heparin (5) Full code status Current Visit: Yes Status: Acute
[2020-04-24] MEDS ORDERED: ACETAMINOPHEN 325 MG TAB PO ONE (10:39)
--- NOTE | 2020-04-24 10:59 | Consultation ---
History of Present Illness - Reason for Consult Consult date: 04/24/20 Reason for consult: suicidal thoughts - History of Present Psychiatric Illness Triny Kearney is a 54y/o female who presented with shortness of breath and chest pain, according to the chart. I attempted to interview the patient this morning. The nurse says the patient was off the floor for a stress test and echo. PAST PSYCHIATRIC HISTORY: Unable to obtain PAST MEDICAL HISTORY: Unable to obtain Family Psychiatric History: Unable to obtain SOCIAL HISTORY Unable to obtain REVIEW OF SYSTEMS Unable to obtain MENTAL STATUS EXAMINATION Unable to obtain Assessment MEDICATIONS: No medications started at this time Risks, benefits and alternatives of medications discussed with the patient, questions answered and consent obtained from patient. PSYCHOTHERAPY: Supportive psychotherapy provided MEDICAL: Per primary team DELIRIUM PRECAUTIONS: Please re-orient patient frequently, keep lights on during the day, and minimize benzodiazepines and opiates as these medications could w orsen patient's confusion. AWNINGS MECHANIC: Per Medical Team DISPOSITION: TBD Will continue to follow. Thank you for the consult. Please contact with any questions and/or concerns. Medications and Allergies Allergies Allergy/AdvReac Type Severity Reaction Status Date / Time codeine Allergy Vomiting Verified 07/05/15 11:49 Home Medications Medication Instructions Recorded Confirmed Last Taken Type Metformin HCl [Glucophage] 1,000 mg PO BID 07/05/15 11/14/19 07/05/15 History Albuterol INH(or & Nicu Only) 2 puff IH QID PRN 11/14/19 11/14/19 Unknown History [ProAir HFA Inhaler] Aspirin [Aspirin BABY CHEW TAB] 81 mg PO QDAY 11/14/19 11/14/19 Unknown History Esomeprazole Magnesium [NexIUM] 40 mg PO QDAY PRN 11/14/19 11/14/19 Unknown History Ferrous Sulfate [Feosol 325 MG tab] 325 mg PO QDAY 11/14/19 11/14/19 Unknown History Insulin NPH/Regular [NovoLIN 70/30] 33 unit SQ BIDDIAB 11/14/19 11/14/19 Unknown History Losartan [Cozaar] 50 mg PO QDAY 11/14/19 11/14/19 Unknown History Metoclopramide [Reglan TAB] 10 mg PO Q6H PRN 11/14/19 11/14/19 Unknown History Potassium Chloride 20 meq PO QDAY 11/14/19 11/14/19 Unknown History Rosuvastatin Calcium 40 mg PO QDAY 11/14/19 11/14/19 Unknown History Sertraline [Zoloft] 100 mg PO QDAY 11/14/19 11/14/19 Unknown History Torsemide [Demadex] 20 mg PO BID 11/14/19 11/14/19 Unknown History amLODIPine 10 mg PO DAILY 11/14/19 11/14/19 Unknown History carvediloL [Coreg] 12.5 mg PO BID 11/14/19 11/14/19 Unknown History traMADoL [Ultram 50 MG tab] 25 mg PO Q6H PRN #14 tablet 11/21/19 Unknown Rx HYDROcodone/APAP 7.5-325 [[place] 1 each PO Q6HR PRN #12 tablet 12/06/19 Unknown Rx 7.5/325] Ibuprofen [Motrin] 800 mg PO Q8HR PRN #24 tablet 12/06/19 Unknown Rx Active Meds: Active Medications Aspirin (Ecotrin) 325 mg PO QDAY [facility] Dextrose (D50w (25gm) Syringe) 50 ml IV Q30MIN PRN; Protocol PRN Reason: Hypoglycemia Heparin Sodium (Porcine) (Heparin) 5,000 unit SUB-Q Q8HR [facility] Last Admin: 04/24/20 05:46 Dose: 5,000 unit Documented by: Hydromorphone HCl (Dilaudid) 1 mg IV Q4H PRN PRN Reason: Pain , Severe (7-10) Last Admin: 04/24/20 05:35 Dose: 1 mg Documented by: Insulin Human Lispro (Humalog) 0 unit SUB-Q [facility]; Protocol Nitroglycerin (Nitrostat) 0.4 mg SL Q5M PRN PRN Reason: Chest Pain Ondansetron HCl (Zofran) 4 mg IV Q6H PRN PRN Reason: Nausea And Vomiting Last Admin: 04/24/20 05:35 Dose: 4 mg Documented by: Sodium Chloride (Sodium Chloride Flush Syringe 10 Ml) 10 ml IV PRN PRN PRN Reason: LINE FLUSH Mental Status Exam - Vital signs Last Vital Signs Temp 97.8 F 04/24/20 08:33 Pulse 103 H 04/24/20 08:33 Resp 18 04/24/20 08:33 BP 176/100 04/24/20 08:33 Pulse Ox 98 04/24/20 08:33 Results Result Diagrams: 04/24/20 03:03 04/24/20 03:03 Abnormal lab results 04/23/20 04/23/20 04/24/20 Range/Units 22:52 23:26 03:03 MCH 27 L (28-32) pg PT 12.0 L (12.2-14.9) Sec. D-Dimer 318.87 H (0-234) ng/mlDDU Sodium 130 L (137-145) mmol/L Chloride 88.8 L (98-107) mmol/L BUN 38 H (7-17) mg/dL Creatinine 1.4 H (0.7-1.2) mg/dL Glucose 470 H (65-100) mg/dL POC Glucose (70-105) Albumin 3.3 L (3.9-5) g/dL 04/24/20 04/24/20 Range/Units 03:03 08:44 MCH (28-32) pg PT (12.2-14.9) Sec. D-Dimer (0-234) ng/mlDDU Sodium 131 L (137-145) mmol/L Chloride 92.2 L (98-107) mmol/L BUN 35 H (7-17) mg/dL Creatinine 1.3 H (0.7-1.2) mg/dL Glucose 433 H (65-100) mg/dL POC Glucose 436 H (70-105) Albumin (3.9-5) g/dL All other labs normal.
[2020-04-24] MEDS ORDERED: traMADol 50 MG TAB PO PRN (11:25)
[2020-04-24] MEDS ORDERED: ALBUTEROL 8.5 GM INHALATION IH PRN (11:25)
[2020-04-24] MEDS ORDERED: METOCLOPRAMIDE 10 MG TAB PO PRN (11:25)
[2020-04-24] MEDS ORDERED: ALBUTEROL 2.5 MG/3 ML NEBU IH PRN (11:46)
--- NOTE | 2020-04-24 11:54 | Consultation ---
History of Present Illness Consult date: 04/24/20 Consult reason: chest pain History of present illness: The patient is a 54-year-old woman with multiple comorbidities, well-known to our service from her prior admission 6 months ago. She is morbidly obese, weighing over 320 pounds, chronic asthma, chronic hypertension all resulting in a syndrome of chronic dyspnea. Prior cardiac evaluation includes a negative thallium stress test in 2018, and an echocardiogram during her admission 6 months ago demonstrated normal left ventricular systolic function with ejection fraction 55 to 60%. During that admission, she was referred to have outpatient sleep study with the responder, but admits to no compliance with follow-up until the recent presentation. In addition, he has been noncompliant with her medical therapy including her antihypertensives. She presents to the hospital at this time, with primary complaint of right lower extremity pain, and persistent headache. On presentation, her blood pressure was 170s to 180s, and has remained persistently elevated until the current time. She denies any anginal type chest pain, but does admit to her chronic shortness of breath from her COPD, obesity and possibly sleep apnea. Cardiac work-up here EKG was sinus rhythm, left ventricle hypertrophy by voltage criteria, no acute ischemic changes. Chest x-ray was normal sized cardiac silhouette and clear lungs. She was ordered for a Lexiscan thallium stress test by the medical service, which was completed, results are pending. Past History Past Medical History: diabetes, hypertension, other (Asthma) Past Surgical History: cholecystectomy, , Other (Gastric stapling) Social history: smoking (Patient is a former smoker) Family history: no significant family history Medications and Allergies Allergies Allergy/AdvReac Type Severity Reaction Status Date / Time codeine Allergy Vomiting Verified 07/05/15 11:49 Home Medications Medication Instructions Recorded Confirmed Last Taken Type Metformin HCl [Glucophage] 1,000 mg PO BID 07/05/15 11/14/19 07/05/15 History Albuterol INH(or & Nicu Only) 2 puff IH QID PRN 11/14/19 11/14/19 Unknown Hist ory [ProAir HFA Inhaler] Aspirin [Aspirin BABY CHEW TAB] 81 mg PO QDAY 11/14/19 11/14/19 Unknown History Esomeprazole Magnesium [NexIUM] 40 mg PO QDAY PRN 11/14/19 11/14/19 Unknown History Ferrous Sulfate [Feosol 325 MG tab] 325 mg PO QDAY 11/14/19 11/14/19 Unknown History Insulin NPH/Regular [NovoLIN 70/30] 33 unit SQ BIDDIAB 11/14/19 11/14/19 Unknown History Losartan [Cozaar] 50 mg PO QDAY 11/14/19 11/14/19 Unknown History Metoclopramide [Reglan TAB] 10 mg PO Q6H PRN 11/14/19 11/14/19 Unknown History Potassium Chloride 20 meq PO QDAY 11/14/19 11/14/19 Unknown History Rosuvastatin Calcium 40 mg PO QDAY 11/14/19 11/14/19 Unknown History Sertraline [Zoloft] 100 mg PO QDAY 11/14/19 11/14/19 Unknown History Torsemide [Demadex] 20 mg PO BID 11/14/19 11/14/19 Unknown History amLODIPine 10 mg PO DAILY 11/14/19 11/14/19 Unknown History carvediloL [Coreg] 12.5 mg PO BID 11/14/19 11/14/19 Unknown History traMADoL [Ultram 50 MG tab] 25 mg PO Q6H PRN #14 tablet 11/21/19 Unknown Rx HYDROcodone/APAP 7.5-325 [[place] 1 each PO Q6HR PRN #12 tablet 12/06/19 Unknown Rx 7.5/325] Ibuprofen [Motrin] 800 mg PO Q8HR PRN #24 tablet 12/06/19 Unknown Rx Active Meds: Active Medications Acetaminophen/Hydrocodone Bitart ([place] 7.5/325) 1 each PO Q6HR PRN PRN Reason: Pain, Moderate (4-6) Albuterol (Proventil) 2.5 mg IH QID PRN PRN Reason: Shortness Of Breath Aspirin (Ecotrin) 325 mg PO QDAY [facility] Atorvastatin Calcium (Lipitor) 80 mg PO QHS [facility] Carvedilol (Coreg) 12.5 mg PO BID [facility] Dextrose (D50w (25gm) Syringe) 50 ml IV Q30MIN PRN; Protocol PRN Reason: Hypoglycemia Ferrous Sulfate (Feosol) 325 mg PO QDAY [facility] Heparin Sodium (Porcine) (Heparin) 5,000 unit SUB-Q Q8HR [facility] Last Admin: 04/24/20 05:46 Dose: 5,000 unit Documented by: Hydromorphone HCl (Dilaudid) 1 mg IV Q4H PRN PRN Reason: Pain , Severe (7-10) Last Admin: 04/24/20 05:35 Dose: 1 mg Documented by: Insulin Human Isoph/Insulin Regular (Humulin 70/30) 15 unit SUB-Q B[facility]DIAB [facility] Insulin Human Lispro (Humalog) 0 unit SUB-Q ACHS [facility]; Protocol Losartan Potassium (Cozaar) 50 mg PO QDAY [facility] Metoclopramide HCl (Reglan) 10 mg PO Q6H PRN PRN Reason: Nausea Nifedipine (Procardia Xl) 60 mg PO QDAY [facility] Nitroglycerin (Nitrostat) 0.4 mg SL Q5M PRN PRN Reason: Chest Pain Ondansetron HCl (Zofran) 4 mg IV Q6H PRN PRN Reason: Nausea And Vomiting Last Admin: 04/24/20 05:35 Dose: 4 mg Documented by: Sertraline HCl (Zoloft) 100 mg PO QDAY [facility] Sodium Chloride (Sodium Chloride Flush Syringe 10 Ml) 10 ml IV PRN PRN PRN Reason: LINE FLUSH Torsemide (Demadex) 20 mg PO BID@0600,1800 [facility] Tramadol HCl (Ultram) 25 mg PO Q6H PRN PRN Reason: Pain, Moderate (4-6) Review of Systems Cardiovascular: chest pain, shortness of breath, no orthopnea, no palpitations, no rapid/irregular heart beat, no edema, no syncope, no lightheadedness Physical Examination Vital Signs Temp Pulse Resp BP Pulse Ox 98.6 F 99 H 18 176/90 100 04/23/20 20:20 04/23/20 20:20 04/23/20 20:20 04/23/20 20:20 04/23/20 20:20 General appearance: no acute distress, obese HEENT: Positive: PERRL Neck: Positive: neck supple Cardiac: Positive: Reg Rate and Rhythm Lungs: Positive: Decreased Breath Sounds Neuro: Positive: Grossly Intact Abdomen: Positive: Soft Female genitourinary: deferred Skin: Positive: Clear Extremities: Absent: edema Results 04/24/20 03:03 04/24/20 03:03 Cardiac Enzymes 04/23/20 Range/Units 22:52 AST 19 (5-40) units/L Coagulation 04/23/20 Range/Units 23:26 PT 12.0 L (12.2-14.9) Sec. INR 0.90 (0.87-1.13) APTT 30.1 (24.2-36.6) Sec. CBC 04/23/20 04/24/20 Range/Units 22:52 03:03 WBC 6.9 6.2 (4.5-11.0) K/mm3 RBC 4.27 4.10 (3.65-5.03) M/mm3 Hgb 11.8 11.2 (10.1-14.3) gm/dl Hct 35.5 34.3 (30.3-42.9) % Plt Count 400 348 (140-440) K/mm3 Lymph # 2.0 1.9 (1.2-5.4) K/mm3 [place] # 0.4 0.4 (0.0-0.8) K/mm3 Eos # 0.2 0.2 (0.0-0.4) K/mm3 Baso # 0.0 0.0 (0.0-0.1) K/mm3 Comprehensive Metabolic Panel 04/23/20 04/24/20 Range/Units 22:52 03:03 Sodium 130 L 131 L (137-145) mmol/L Potassium 5.0 4.6 (3.6-5.0) mmol/L Chloride 88.8 L 92.2 L (98-107) mmol/L Carbon Dioxide 26 24 (22-30) mmol/L BUN 38 H 35 H (7-17) mg/dL Creatinine 1.4 H 1.3 H (0.7-1.2) mg/dL Glucose 470 H 433 H (65-100) mg/dL Calcium 9.0 8.9 (8.4-10.2) mg/dL AST 19 (5-40) units/L ALT 16 (7-56) units/L Alkaline Phosphatase 124 (35-129) units/L Total Protein 7.3 (6.3-8.2) g/dL Albumin 3.3 L (3.9-5) g/dL EKG interpretations - Telemetry EKG Rhythm: Sinus Rhythm Assessment and Plan - Patient Problems (1) SOB (shortness of breath) Current Visit: Yes Status: Acute Plan to address problem: Chronic shortness of breath due to obesity, asthma, COPD and possible sleep apnea. Patient underwent a Lexiscan thallium stress test today, results are pending. Low suspicion for acute coronary syndrome. (2) Uncontrolled hypertension Current Visit: Yes Status: Acute Plan to address problem: Patient has severe uncontrolled hypertension due to noncompliance with medical therapy. One of her presenting symptoms was persistent headache. We will aggressively treat her hypertension, with Procardia XL, losartan. We will suggest a social worker clinical consult, to assist patient in procuring outpatient medications and maintaining compliance with medical therapy and doctors follow-up visits.
[2020-04-24] MEDS ORDERED: amLODIPine 10 MG TAB PO SCH (12:00)
[2020-04-24] MEDS: INSULIN LISPRO 100 UNIT/ML SUB-Q SCH ×4 (12:12→22:33)
[2020-04-24] MEDS: carvediloL 12.5 MG TAB PO SCH ×2 (12:22→22:32)
[2020-04-24] MEDS: NIFEdipine XL 60 MG TAB PO SCH (12:22)
[2020-04-24] MEDS: SERTRALINE 100 MG TAB PO SCH (12:22)
[2020-04-24] MEDS: LOSARTAN 50 MG TAB PO SCH (12:23)
[2020-04-24] MEDS: INSULIN NPH/REGULAR 70/30 INJ SUB-Q SCH ×2 (14:21→18:28)
[2020-04-24] MEDS: PANTOPRAZOLE 40 MG TAB PO SCH (14:22)
--- NOTE | 2020-04-24 14:42 | Discharge Summary ---
Providers - Providers Date of Admission: 04/24/20 03:00 Date of discharge: 04/26/20 Attending physician: JESUSITA GRIFFIN 04/24/20 Consult to Cardiac Rehabilitation [CONS] Routine Reason For Exam: Phase I 04/24/20 02:48 Consult to Cardiology [CONS] Routine Consulting Provider: ОЛЕГ BEY Reason For Exam: chest pain Consult to Dietitian/Nutrition [CONS] Routine Physician Instructions: Reason For Exam: Reason for Consult: Diet education 04/24/20 07:46 Consult to Wound/ET Nurse [CONS] Routine Reason For Exam: wound eval of right foot second toe Primary care physician: ACUTE CARE NURSE PRACTITIONER Hospitalization Condition: Critical Pertinent studies: Chest x-ray, chest CTA, lower extremity venous Doppler, MPI stress test, 2D echo cardiogram Hospital course: 54-year-old -[place] female with known history of hypertension, diabetes mellitus presented to the emergency room with complaining of shortness of breath and chest pain. She also complained of depressed mood with suicidal ideation due to her underlying medical conditions. Patient denies any recent travel and no sick contacts. Work-up in the emergency room reveals elevated d- dimer however Doppler of the lower extremities and CT angiogram were unremarkable. Initial cardiac enzymes were normal and EKG did not show any acute ST changes. Patient was further evaluated by MPI stress test which did not show any reversible ischemia. High BP medications were adjusted. Psychiatry was consulted for her underlying depression and suicidal ideation, she was placed on Zoloft and also melatonin for sleep. Patient noted to have A1c of 13.1, her blood glucose was monitored and adjusted. Given IV fluid for BIJU. Patient patient was counseled for weight reduction and diet control regimen appropriate for her age and medical condition. Home health was set up and patient was cleared by psych and cardiology. Patient was then discharged home in stable condition with outpatient follow-up. Discharge diagnosis and Mx: Atypical chest pain, likely due to GERD -Negative stress test, placed on PPI Uncontrolled diabetes mellitus type 2 -A1c greater than 13, adjusted long-acting insulin to better control blood glucose along with SSI -Consistent carb diet Hypertension, uncontrolled -BP now well controlled with coreg, torsemide, Procardia XL and losartan Hyperlipidemia -Continue statin Morbid obesity -Counseled for weight reduction diet and exercise when clinically stable Mild BIJU, due to vasomotor nephropathy -Improved with IV fluid, cannot r/o underlying CKD mild hyponatremia, hyperglycemia -Sodium level improved Major depressive disorder with suicidal ideation -Psych consulted, placed on 1013 -Started on Zoloft and melatonin for sleep - will cont outpt followup Right foot chronic diabetic ulcer -Wound care consulted, Physical exam: GENERAL: well-developed morbidly obese lying on bed appeared to be in no discomfort. HEENT: Normocephalic. Atraumatic. No conjunctival congestion or icterus. Patient has moist mucous membranes. NECK: Supple. Trachea midline. CHEST/LUNGS: Clear to auscultated bilaterally, breathing nonlabored. No wheezes crackles or rhonchi. HEART/CARDIOVASCULAR: Regular in rate and rhythm. S1 and S2 positive. ABDOMEN: Abdomen is soft, nontender. Patient has normal bowel sounds. SKIN: There is no rash. Warm and dry. NEURO: No focal motor deficit. Follows command. MUSCULOSKELETAL: No joint effusion or tenderness. EXTRIMITY: No edema, no cyanosis or clubbing. Right foot with wound dressing PSYCH: Cooperative. Denies suicidal ideation Disposition: DC/TX-06 HOME UNDER HOME [facility] Time spent for discharge: 34 minutes Core Measure Documentation - Palliative Care Palliative Care/ Comfort Measures: Not Applicable - Core Measures Any of the following diagnoses?: none Exam - Constitutional Vitals: Temp Pulse Resp BP Pulse Ox 98.3 F 103 H 18 142/87 98 04/24/20 11:42 04/24/20 12:23 04/24/20 11:42 04/24/20 12:23 04/24/20 11:42 General appearance: Present: no acute distress, obese - EENT Eyes: Present: PERRL ENT: hearing intact, clear oral mucosa - Neck Neck: Present: supple, normal ROM - Respiratory Respiratory effort: normal Respiratory: bilateral: CTA - Cardiovascular Heart Sounds: Present: S1 & S2. Absent: rub, click - Extremities Extremities: pulses symmetrical, No edema Peripheral Pulses: within normal limits - Abdominal General gastrointestinal: Present: soft, non-tender, non-distended, normal bowel sounds - Integumentary Integumentary: Present: clear, warm, dry - Musculoskeletal Musculoskeletal: gait normal, strength equal bilaterally - Psychiatric Psychiatric: appropriate mood/affect, intact judgment & insight - Neurologic Neurologic: CNII-XII intact, moves all extremities Plan Activity: advance as tolerated Weight Bearing Status: Weight Bear as Tolerated Diet: diabetic Special Instructions: record daily BP diary, record blood sugar diary Follow up with: PRIMARY CARE, [Primary Care Provider] - 3-5 Days ISAIAH NICHOLAS MD [Staff Physician] - 7 Days Prescriptions: traZODone [Desyrel] 50 mg PO QHS #30 tab Aspirin [Aspirin BABY CHEW TAB] 81 mg PO QDAY #30 carvediloL [Coreg] 12.5 mg PO BID #60 Losartan [Cozaar] 50 mg PO QDAY #30 Torsemide [Demadex] 20 mg PO BID #60 Ferrous Sulfate [Feosol 325 MG tab] 325 mg PO QDAY #30 Metformin HCl [Glucophage] 1,000 mg PO BID #60 Lispro Insulin [HumaLOG] See Protocol SUB-Q ACHS 30 Days Melatonin [Melatonin 5MG TAB] 10 mg PO QHS@2100 #14 tablet Insulin NPH/Regular [NovoLIN 70/30] 33 unit SQ BIDDIAB 30 Days units Insulin NPH/Regular [NovoLIN 70/30] 35 unit SUB-Q BIDDIAB 30 Days Albuterol INH(or & Nicu Only) [ProAir HFA Inhaler] 2 puff IH QID PRN #1 PRN Reason: Shortness Of Breath NIFEdipine XL [Procardia Xl] 60 mg PO QDAY #30 tablet Pantoprazole [Protonix TAB] 40 mg PO QDAY #30 tablet Metoclopramide [Reglan TAB] 10 mg PO Q6H PRN #30 PRN Reason: Nausea Rosuvastatin Calcium 40 mg PO QDAY #30 Sertraline [Zoloft] 50 mg PO QDAY #30 tablet
[2020-04-24] MEDS ORDERED: INSULIN NPH/REGULAR 70/30 INJ SUB-Q SCH (17:00)
[2020-04-24] MEDS: TORSEMIDE 10 MG TAB PO SCH (18:33)
--- NOTE | 2020-04-24 20:13 | Treadmill Report ---
THALLIUM STRESS TEST LEFT VENTRICLE: Left ventricular chamber size is within normal spread. Perfusion study demonstrates normal apical thinning, otherwise homogeneous uptake of the tracer in all segments with no significant defects identified. Gated analysis demonstrates normal left ventricular systolic function, ejection fraction 58%. CONCLUSION: Normal myocardial perfusion study. JOB# [id number] CA/NTS
[2020-04-24] MEDS ORDERED: NON-FORMULARY EACH (Torsemide [Demadex] 20 MG) PO SCH (22:00)
[2020-04-25] MEDS ORDERED: METOCLOPRAMIDE 10 MG/2 ML INJ IV ONE (00:16)
[2020-04-25] MEDS: TORSEMIDE 10 MG TAB PO SCH ×2 (06:28→17:06)
[2020-04-25] MEDS: HEPARIN 5,000 UNIT/1 ML VIAL SUB-Q SCH ×3 (06:29→22:20)
[2020-04-25] MEDS: INSULIN NPH/REGULAR 70/30 INJ SUB-Q SCH (08:33)
[2020-04-25] MEDS ORDERED: INSULIN NPH/REGULAR 70/30 INJ SUB-Q SCH ×2 (09:00→15:19)
[2020-04-25 09:18] LABS: Calcium 9.1 mg/dL (8.4-10.2)
[2020-04-25] MEDS ORDERED: NON-FORMULARY EACH (Rosuvastatin Calcium [Rosuvastatin Calcium] 40 MG) PO SCH (10:00)
[2020-04-25] MEDS: PANTOPRAZOLE 40 MG TAB PO SCH (10:07)
[2020-04-25] MEDS: HYDROcodone/ACETAMINOPHEN 7.5-325MG TAB PO PRN ×2 (10:07→18:05)
[2020-04-25] MEDS: LOSARTAN 50 MG TAB PO SCH (10:08)
[2020-04-25] MEDS: NIFEdipine XL 60 MG TAB PO SCH (10:08)
[2020-04-25] MEDS: SERTRALINE 100 MG TAB PO SCH (10:09)
[2020-04-25] MEDS: carvediloL 12.5 MG TAB PO SCH ×2 (10:09→22:21)
[2020-04-25] MEDS: ASPIRIN EC 325 MG TAB PO SCH (10:09)
[2020-04-25] MEDS: FERROUS SULFATE 325 MG TAB PO SCH (10:10)
[2020-04-25] MEDS: INSULIN LISPRO 100 UNIT/ML SUB-Q SCH ×4 (10:10→22:22)
[2020-04-25] MEDS: ONDANSETRON 4 MG/2 ML INJ IV PRN (10:11)
--- NOTE | 2020-04-25 10:15 | Progress Note ---
Assessment and Plan - Patient Problems (1) SOB (shortness of breath) Current Visit: Yes Status: Acute Plan to address problem: Chronic shortness of breath due to obesity, asthma, COPD and possible sleep apnea. Patient underwent a Lexiscan thallium stress test normal perfusion study. (2) Uncontrolled hypertension Current Visit: Yes Status: Acute Plan to address problem: Patient has severe uncontrolled hypertension due to noncompliance with medical therapy. One of her presenting symptoms was persistent headache. Blood pressure is now 130s systolic with Procardia XL, losartan. We will suggest a manager social work consult, to assist patient in procuring outpatient medications and maintaining compliance with both medical therapy and doctors follow-up visits. Subjective Date of service: 04/25/20 Interval history: Patient is comfortable, no new cardiac complaints. As reported, her Lexiscan t hallium stress test done yesterday was normal. Objective Vital Signs Temp Pulse Pulse Resp BP Pulse Ox 04/25/20 08:10 98 04/25/20 08:00 101 H 18 97 04/25/20 07:44 97.6 F 88 18 139/66 98 04/25/20 04:24 98.4 F 88 18 140/70 98 04/24/20 23:50 139/85 04/24/20 23:04 18 04/24/20 22:59 98.0 F 89 20 198/89 99 04/24/20 22:34 18 04/24/20 22:32 101 H 137/84 04/24/20 21:35 101 H 18 97 04/24/20 21:18 97 04/24/20 19:58 96 H 04/24/20 19:32 97.8 F 101 H 18 137/84 97 04/24/20 17:06 97.9 F 101 H 18 158/87 97 04/24/20 12:23 103 H 162/87 04/24/20 12:22 103 H 162/87 04/24/20 11:42 98.3 F 102 H 18 184/93 98 04/24/20 10:45 22 04/24/20 10:34 162/87 04/24/20 10:32 154/81 04/24/20 10:31 160/80 04/24/20 10:29 160/81 04/24/20 10:28 154/78 04/24/20 10:26 178/86 - Physical Examination General: No Apparent Distress HEENT: Positive: PERRL Neck: Positive: neck supple Cardiac: Positive: Reg Rate and Rhythm Lungs: Positive: Decreased Breath Sounds Neuro: Positive: Grossly Intact Abdomen: Positive: Soft Skin: Positive: Clear Extremities: Absent: edema - Labs and Meds Comprehensive Metabolic Panel 04/25/20 Range/Units 08:37 Sodium 136 L (137-145) mmol/L Potassium 4.7 (3.6-5.0) mmol/L Chloride 98.3 (98-107) mmol/L Carbon Dioxide 26 (22-30) mmol/L BUN 27 H (7-17) mg/dL Creatinine 1.2 (0.7-1.2) mg/dL Glucose 269 H (65-100) mg/dL Calcium 9.1 (8.4-10.2) mg/dL
--- NOTE | 2020-04-25 10:29 | Consultation ---
History of Present Illness - Reason for Consult Consult date: 04/25/20 Reason for consult: SI Requesting physician: CALLIE PAIGE III - Chief Complaint Chief complaint: Shortness of breath Right lower extremity pain - History of Present Psychiatric Illness Per ED Provider: Patient is a 54-year-old female that presents emergency room with complaints of shortness of breath, chest pain, right lower extremity pain and swelling, headache. Patient states that her symptoms started 2 days ago. Patient states that her chest pain is in the center of her chest. Patient states it is nonradiating. Patient states that her chest pain and shortness of breath are better with rest. Patient states that her shortness of breath and chest pain are worse with exertion. Patient is having dyspnea on exertion. Patient states that her chest pain is a 6 out of 10. Patient states that her right lower extremity is a 10 out of 10. Patient states her right lower extremity pain is better with rest and worse with movement and palpation. Patient states her headache is a 2 out of 10. Patient states her headache is better with rest and worse with exertion. Patient denies neck pain. Patient de nies fever and chills. Patient denies visual changes. Patient denies cough. Patient denies abdominal pain. Patient denies recent travel. Patient denies recent international travel. Patient denies exposure to the novel coronavirus. Patient denies sick contacts. Patient denies fever and chills. Patient denies cough. Patient denies diarrhea. Patient denies coming in contact with anybody with symptoms of the novel coronavirus. HPI Patient is a 54-year-old unemployed single -[place]ag[place] female with past psychiatric history of depression and past medical history of diabetes, high blood pressure and CHF. Patient reports she had presented to the ER for evaluation of medical problems when she was screaming about suicidal ideation she was being honest and told him she has been having a lot of suicidal thoughts lately. Patient reports she has been having persistent depressed mood, feeling down mostly all the time has been having's poor sleep pattern that is associated with nightmares. Patient identifies perpetrating fact that her depression to be mostly due to medical problems. Patient states she has been so unhappy ever since a recent fall incident and has not been able to walk like she normally used to, and the fact that she currently lives with her mom was asked medical prognosis makes life much more complicated and sometimes she wishes that she does anyone live anymore because there is just no value and happiness anywhere. She also states that she currently has no income and she has been working from age 17, she is unable to afford her medications and take care of herself. Patient report is been very very difficult dealing with her mom issues and also dealing with a home issues and she is currently tired about life because everything just hurts so bad. Endorses suicidal ideation, denies homicidal ideation and denies auditory visual hallucination but endorses sometimes she sees leg grammar and she sometimes down the leg reminders would like to join her. PAST PSYCHIATRIC HISTORY Diagnoses: Depression Suicide attempts or Self-harm behavior: Yes Prior psychiatric hospitalizations: Yes Substance Abuse history: None reported Previous psychiatric medications tried: Yes, zoloft Outpatient treatment: Yes PAST MEDICAL HISTORY: HTN, DM and CHF Family Psychiatric History: None reported or documented SOCIAL HISTORY Marital Status: Single Living Arrangements: With mom Employment Status: unemployed Access to guns/weapons: None reported Education: College drop out History of Abuse: None reported Legal History: None reported REVIEW OF SYSTEMS Constitutional: Negative for weight loss ENT: Negative for stridor Respiratory: Negative for cough or hemoptysis All other systems reviewed and are negative MENTAL STATUS EXAMINATION General Appearance and Behavior: Age appropriate, good hygiene, wearing appropriate clothes, lying in bed, good eye contact, cooperative with questioning and polite. Cooperation: Participating/engaged Psychomotor Behavior: Unremarkable and within normal limits Mood: Depressed Affect and affective range: sad, dysthymic Thought Process: Fluent/Logical Thought Content: Within reality Speech: Normal volume, Regular rate and rhythm Intellectual Functioning: Average Suicidal Ideation: Suicidal Homicidal Ideation: Homicidal Impulse Control: Unimpaired Insight and Judgment: Normal insight and judgment Memory: Normal Attention: Normal Orientation: Alert, oriented Assessment and Plan - Psychiatric problem (1) MDD (major depressive disorder) Current Visit: Yes Status: Acute (2) MDD (major depressive disorder), recurrent severe, without psychosis Current Visit: Yes Status: Acute RECOMMENDATIONS MEDICATIONS:Will start patient on ZOloft and melatonin for sleep Risks, benefits and alternatives of medications discussed with the patient, questions answered and consent obtained from patient. PSYCHOTHERAPY: Supportive psychotherapy provided MEDICAL: Per primary team DELIRIUM PRECAUTIONS: Please re-orient patient frequently, keep lights on during the day, and minimize benzodiazepines and opiates as these medications could wor sen patient's confusion. 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 Please contact with any questions and/or concerns. Medications and Allergies Allergies Allergy/AdvReac Type Severity Reaction Status Date / Time codeine Allergy Vomiting Verified 07/05/15 11:49 Home Medications Medication Instructions Recorded Confirmed Last Taken Type Albuterol INH(or & Nicu Only) 2 puff IH QID PRN #1 04/24/20 Unknown Rx [ProAir HFA Inhaler] Aspirin [Aspirin BABY CHEW TAB] 81 mg PO QDAY #30 04/24/20 Unknown Rx Ferrous Sulfate [Feosol 325 MG tab] 325 mg PO QDAY #30 04/24/20 Unknown Rx Insulin NPH/Regular [NovoLIN 70/30] 33 unit SQ BIDDIAB 30 Days units 04/24/20 Unknown Rx Losartan [Cozaar] 50 mg PO QDAY #30 04/24/20 Unknown Rx Metformin HCl [Glucophage] 1,000 mg PO BID #60 04/24/20 Unknown Rx Metoclopramide [Reglan TAB] 10 mg PO Q6H PRN #30 04/24/20 Unknown Rx NIFEdipine XL [Procardia Xl] 60 mg PO QDAY #30 tablet 04/24/20 Unknown Rx Pantoprazole [Protonix TAB] 40 mg PO QDAY #30 tablet 04/24/20 Unknown Rx Rosuvastatin Calcium 40 mg PO QDAY #30 04/24/20 Unknown Rx Sertraline [Zoloft] 100 mg PO QDAY #30 04/24/20 Unknown Rx Torsemide [Demadex] 20 mg PO BID #60 04/24/20 Unknown Rx carvediloL [Coreg] 12.5 mg PO BID #60 04/24/20 Unknown Rx Active Meds: Active Medications Acetaminophen/Hydrocodone Bitart ([place] 7.5/325) 1 each PO Q6HR PRN PRN Reason: Pain, Moderate (4-6) Last Admin: 04/25/20 10:07 Dose: 1 each Documented by: Albuterol (Proventil) 2.5 mg IH QID PRN PRN Reason: Shortness Of Breath Aspirin (Ecotrin) 325 mg PO QDAY [facility] Last Admin: 04/25/20 10:09 Dose: 325 mg Documented by: Atorvastatin Calcium (Lipitor) 80 mg PO QHS [facility] Last Admin: 04/24/20 22:33 Dose: 80 mg Documented by: Carvedilol (Coreg) 12.5 mg PO BID [facility] Last Admin: 04/25/20 10:09 Dose: 12.5 mg Documented by: Dextrose (D50w (25gm) Syringe) 50 ml IV Q30MIN PRN; Protocol PRN Reason: Hypoglycemia Ferrous Sulfate (Feosol) 325 mg PO QDAY [facility] Last Admin: 04/25/20 10:10 Dose: 325 mg Documented by: Heparin Sodium (Porcine) (Heparin) 5,000 unit SUB-Q Q8HR [facility] Last Admin: 04/25/20 06:29 Dose: 5,000 unit Documented by: Hydromorphone HCl (Dilaudid) 1 mg IV Q4H PRN PRN Reason: Pain , Severe (7-10) Last Admin: 04/24/20 22:34 Dose: 1 mg Documented by: Insulin Human Isoph/Insulin Regular (Humulin 70/30) 25 unit SUB-Q BIDDIAB [facility] Last Admin: 04/25/20 10:11 Dose: 25 unit Documented by: Insulin Human Lispro (Humalog) 0 unit SUB-Q [facility]; Protocol Last Admin: 04/25/20 10:10 Dose: 3 unit Documented by: Losartan Potassium (Cozaar) 50 mg PO QDAY [facility] Last Admin: 04/25/20 10:08 Dose: 50 mg Documented by: Metoclopramide HCl (Reglan) 10 mg PO Q6H PRN PRN Reason: Nausea Last Admin: 04/24/20 22:32 Dose: 10 mg Documented by: Nifedipine (Procardia Xl) 60 mg PO QDAY [facility] Last Admin: 04/25/20 10:08 Dose: 60 mg Documented by: Nitroglycerin (Nitrostat) 0.4 mg SL Q5M PRN PRN Reason: Chest Pain Ondansetron HCl (Zofran) 4 mg IV Q6H PRN PRN Reason: Nausea And Vomiting Last Admin: 04/25/20 10:11 Dose: 4 mg Documented by: Pantoprazole Sodium (Protonix) 40 mg PO QDAY [facility] Last Admin: 04/25/20 10:07 Dose: 40 mg Documented by: Sertraline HCl (Zoloft) 100 mg PO QDAY [facility] Last Admin: 04/25/20 10:09 Dose: 100 mg Documented by: Sodium Chloride (Sodium Chloride Flush Syringe 10 Ml) 10 ml IV PRN PRN PRN Reason: LINE FLUSH Torsemide (Demadex) 20 mg PO BID@0600,1800 [facility] Last Admin: 04/25/20 06:28 Dose: 20 mg Documented by: Tramadol HCl (Ultram) 25 mg PO Q6H PRN PRN Reason: Pain, Moderate (4-6) Mental Status Exam - Vital signs Last Vital Signs Temp 97.6 F 04/25/20 07:44 Pulse 101 H 04/25/20 08:00 Resp 18 04/25/20 08:00 BP 139/66 04/25/20 07:44 Pulse Ox 98 04/25/20 08:10 Results Result Diagrams: 04/24/20 03:03 04/25/20 08:37 Abnormal lab results 04/24/20 04/24/20 04/24/20 Range/Units 03:03 11:54 15:27 Sodium (137-145) mmol/L BUN (7-17) mg/dL Glucose (65-100) mg/dL POC Glucose 431 H 387 H (70-105) Hemoglobin A1c 13.1 H (4-6) % 04/24/20 04/24/20 04/25/20 Range/Units 17:17 21:08 08:10 Sodium (137-145) mmol/L BUN (7-17) mg/dL Glucose (65-100) mg/dL POC Glucose 339 H 326 H 245 H (70-105) Hemoglobin A1c (4-6) % 04/25/20 Range/Units 08:37 Sodium 136 L (137-145) mmol/L BUN 27 H (7-17) mg/dL Glucose 269 H (65-100) mg/dL POC Glucose (70-105) Hemoglobin A1c (4-6) % All other labs normal. Assessment and Plan - Psychiatric problem (1) MDD (major depressive disorder) Current Visit: Yes Status: Acute (2) MDD (major depressive disorder), recurrent severe, without psychosis Current Visit: Yes Status: Acute
[2020-04-25] MEDS: SERTRALINE 50 MG TAB PO SCH (10:41)
--- NOTE | 2020-04-25 10:47 | Event Note ---
Date: 04/24/20 Patient seen and examined Denies any suicidal ideation now but complains of depression because of her unemployment and underlying medical conditions Stress test did not show any reversible ischemia this morning, she is tolerating diet but complains of nausea Blood sugar persistently greater than 400 Pending psych eval, adjusted insulin dose this morning We will discharge the patient if blood glucose less than 300 and clears by psych
--- NOTE | 2020-04-25 10:49 | Progress Note ---
Assessment and Plan Atypical chest pain, likely due to GERD -Negative stress test, placed on PPI Uncontrolled diabetes mellitus type 2 -A1c greater than 13, continue to adjust long-acting insulin to better control blood glucose -Placed on SSI and consistent carb diet Hypertension, uncontrolled -BP now well controlled with Procardia XL and losartan Hyperlipidemia -Continue statin Morbid obesity -Counseled for weight reduction diet and exercise when clinically stable Mild BIJU, due to vasomotor nephropathy -Creatinine improving with IV fluid, continue to monitor BMP mild hyponatremia, hyperglycemia -Sodium level improved Major depressive disorder with suicidal ideation -Psych consulted, placed on 1013 -Started on Zoloft and melatonin for sleep Right foot chronic diabetic ulcer -Wound care consulted, Disposition: Need inpatient psychiatric admission, patient is medically stable Physical exam: GENERAL: well-developed morbidly obese lying on bed appeared to be in no discomfort. HEENT: Normocephalic. Atraumatic. No conjunctival congestion or icterus. Patient has moist mucous membranes. NECK: Supple. Trachea midline. CHEST/LUNGS: Clear to auscultated bilaterally, breathing nonlabored. No wheezes crackles or rhonchi. HEART/CARDIOVASCULAR: Regular in rate and rhythm. S1 and S2 positive. ABDOMEN: Abdomen is soft, nontender. Patient has normal bowel sounds. SKIN: There is no rash. Warm and dry. NEURO: No focal motor deficit. Follows command. MUSCULOSKELETAL: No joint effusion or tenderness. EXTRIMITY: No edema, no cyanosis or clubbing. Right foot with wound dressing PSYCH: Cooperative. Denies suicidal ideation Subjective Date of service: 04/25/20 Interval history: Patient seen and examined. Medical records and medication list reviewed. No acute event overnight noted by the RN. Patient denies any chest pain or difficulty breathing. Patient is tolerating diet. Discussed plan of care at bedside with patient. Objective - Constitutional Vitals: Vital Signs - 12hr 04/24/20 04/24/20 04/24/20 22:59 23:04 23:50 Temperature 98.0 F Pulse Rate 89 Pulse Rate [ Apical] Respiratory 20 18 Rate Blood Pressure 198/89 139/85 O2 Sat by Pulse 99 Oximetry 04/25/20 04/25/20 04/25/20 04:24 07:44 08:00 Temperature 98.4 F 97.6 F Pulse Rate 88 88 Pulse Rate [ 101 H Apical] Respiratory 18 18 18 Rate Blood Pressure 140/70 139/66 O2 Sat by Pulse 98 98 97 Oximetry 04/25/20 08:10 Temperature Pulse Rate Pulse Rate [ Apical] Respiratory Rate Blood Pressure O2 Sat by Pulse 98 Oximetry - Labs CBC & Chem 7: 04/24/20 03:03 04/25/20 08:37 Labs: Abnormal lab results 04/24/20 04/24/20 04/24/20 Range/Units 03:03 11:54 15:27 Sodium (137-145) mmol/L BUN (7-17) mg/dL Glucose (65-100) mg/dL POC Glucose 431 H 387 H (70-105) Hemoglobin A1c 13.1 H (4-6) % 04/24/20 04/24/20 04/25/20 Range/Units 17:17 21:08 08:10 Sodium (137-145) mmol/L BUN (7-17) mg/dL Glucose (65-100) mg/dL POC Glucose 339 H 326 H 245 H (70-105) Hemoglobin A1c (4-6) % 04/25/20 Range/Units 08:37 Sodium 136 L (137-145) mmol/L BUN 27 H (7-17) mg/dL Glucose 269 H (65-100) mg/dL POC Glucose (70-105) Hemoglobin A1c (4-6) % HEART Score - HEART Score EKG: Non-specific Age: 45-65 Risk factors: > 3 risk factors or hx of atherosclerotic disease Troponin: Troponin T < 0.010 ng/mL (0.00-0.029) 04/24/20 13:23 Troponin: < normal limit
[2020-04-25] MEDS: SODIUM CHLORIDE 0.9% 1000 ML 1,000 ML IV SCH (12:04)
[2020-04-25] MEDS ORDERED: MELATONIN 5 MG TAB PO SCH (21:00)
[2020-04-26] MEDS: HYDROcodone/ACETAMINOPHEN 7.5-325MG TAB PO PRN (02:22)
[2020-04-26] MEDS: TORSEMIDE 10 MG TAB PO SCH (05:33)
[2020-04-26] MEDS: HEPARIN 5,000 UNIT/1 ML VIAL SUB-Q SCH (05:33)
[2020-04-26] MEDS: SODIUM CHLORIDE 0.9% 1000 ML 1,000 ML IV SCH (05:34)
--- NOTE | 2020-04-26 07:49 | Progress Note ---
Subjective - Reason for Consult Consult date: 04/26/20 Reason for consult: MHE Requesting physician: CALLIE PAIGE III - Chief Complaint Chief complaint: Per Floor Nurse: RECEIVED BEDSIDE REPORT FROM AM NURSE, PATIENT IN BED AAOX3, 02 AT 2L/MIN VIA NC RESPIRATIONS EVEN AND UNLABORED. SKIN WARM DRY INT INTACT WITH IV FLUID INFUSING. PATIENT 1013 SITTING AT BEDSIDE, SAFETY MEASURES IN PLACED DENIES PAIN AND NO DISTRESS NOTED. WILL CONTINUE TO MONITORY. Psych Progress Patient seen by me this AM, but was more elated, and smiley at bedside. she was thankful to me for listening to her about her mental health issues yesterday reports sleeping much better yesterday. Denies SI or HI today. MENTAL STATUS EXAMINATION General Appearance and Behavior: Age appropriate, good hygiene, wearing appropriate clothes, lying in bed, good eye contact, cooperative with questioning and polite. Cooperation: Participating/engaged Psychomotor Behavior: Unremarkable and within normal limits Mood: Depressed Affect and affective range: sad, dysthymic Thought Process: Fluent/Logical Thought Content: Within reality Speech: Normal volume, Regular rate and rhythm Intellectual Functioning: Average Suicidal Ideation: Suicidal Homicidal Ideation: Homicidal Impulse Control: Unimpaired Insight and Judgment: Normal insight and judgment Memory: Normal Attention: Normal Orientation: Alert, oriented Assessment and Plan - Psychiatric problem (1) MDD (major depressive disorder) Current Visit: Yes Status: Acute (2) MDD (major depressive disorder), recurrent severe, without psychosis Current Visit: Yes Status: Acute RECOMMENDATIONS Will discharge with safety discharge plans MEDICATIONS:Will start patient on ZOloft and melatonin for sleep Risks, benefits and alternatives of medications discussed with the patient, questions answered and consent obtained from patient. PSYCHOTHERAPY: Supportive psychotherapy provided MEDICAL: Per primary team DELIRIUM PRECAUTIONS: Please re-orient patient frequently, keep lights on during the day, and minimize benzodiazepines and opiates as these medications could worsen patient's confusion. 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 Please contact with any questions and/or concerns. Mental Status Exam - Vital signs Last Vital Signs Temp 98.9 F 04/26/20 03:52 Pulse 77 04/26/20 03:52 Resp 16 04/26/20 03:52 BP 149/83 04/26/20 03:52 Pulse Ox 98 04/26/20 03:52 Assessment and Plan - Patient Problems (1) MDD (major depressive disorder) Current Visit: Yes Status: Acute (2) MDD (major depressive disorder), recurrent severe, without psychosis Current Visit: Yes Status: Acute
[2020-04-26] MEDS: INSULIN LISPRO 100 UNIT/ML SUB-Q SCH ×2 (08:36→12:11)
[2020-04-26] MEDS ORDERED: metFORMIN 850 MG TAB PO SCH (09:00)
[2020-04-26] MEDS ORDERED: INSULIN NPH/REGULAR 70/30 INJ SUB-Q SCH (09:00)
[2020-04-26] MEDS: carvediloL 12.5 MG TAB PO SCH (09:07)
[2020-04-26] MEDS: FERROUS SULFATE 325 MG TAB PO SCH (09:07)
[2020-04-26] MEDS: ASPIRIN EC 325 MG TAB PO SCH (09:08)
[2020-04-26] MEDS: SERTRALINE 50 MG TAB PO SCH (09:08)
[2020-04-26] MEDS: PANTOPRAZOLE 40 MG TAB PO SCH (09:08)
[2020-04-26] MEDS: LOSARTAN 50 MG TAB PO SCH (09:08)
[2020-04-26] MEDS: NIFEdipine XL 60 MG TAB PO SCH (09:08)
[2020-04-26 09:26] LABS: Calcium 8.7 mg/dL (8.4-10.2)
--- NOTE | 2020-04-26 10:35 | Progress Note ---
Subjective Date of service: 04/26/20 Interval history: Assessment and Plan - Patient Problems (1) SOB (shortness of breath) Improved, nuclear stress normal (2) Uncontrolled hypertension Improved on medications We will suggest a social work manager consult, to assist patient in procuring outpatient medications and maintaining compliance with both medical therapy and doctors follow-up visits. No new recommendations otherwise Objective Vital Signs Temp Pulse Pulse Pulse Resp BP Pulse Ox 04/26/20 09:34 95 H 95 H 18 98 04/26/20 09:13 99 04/26/20 09:08 90 136/68 04/26/20 09:07 90 136/68 04/26/20 08:47 90 18 136/68 100 04/26/20 03:52 98.9 F 77 16 149/83 98 04/25/20 23:49 98.5 F 73 16 111/49 97 04/25/20 22:21 80 04/25/20 22:00 78 20 99 04/25/20 19:39 99.0 F 76 18 147/79 100 04/25/20 17:58 98.2 F 85 16 116/58 99 04/25/20 11:38 98.0 F 90 20 138/80 100 - Physical Examination General: No Apparent Distress HEENT: Positive: PERRL Neck: Positive: neck supple Cardiac: Positive: Reg Rate and Rhythm, S1/S2 Lungs: Positive: Normal Exam Neuro: Positive: Grossly Intact Abdomen: Positive: Soft Skin: Positive: Clear Extremities: Absent: edema - Labs and Meds Comprehensive Metabolic Panel 04/26/20 Range/Units 08:08 Sodium 133 L (137-145) mmol/L Potassium 4.9 (3.6-5.0) mmol/L Chloride 96.5 L (98-107) mmol/L Carbon Dioxide 23 (22-30) mmol/L BUN 32 H (7-17) mg/dL Creatinine 1.3 H (0.7-1.2) mg/dL Glucose 308 H (65-100) mg/dL Calcium 8.7 (8.4-10.2) mg/dL
[2020-04-26 11:19] VITALS: BP 127/68
== END 2020-04-26 13:25 | disposition home or self-care (01) | DRG 391 ==
LOC: ED 20:12 → 4A 04-24 03:00 → INTOOBSV 04-24 03:00 → OBSVTOIN 04-25 14:28
PROVIDERS: ADMIT Internal Medicine Geriatric Medicine; ATTEND Internal Medicine
DX: K21.9 Gastro-esophageal reflux disease without esophagitis (principal); N17.0 Acute kidney failure with tubular necrosis; Z68.42 Body mass index [BMI] 45.0-49.9, adult; E87.1 Hypo-osmolality and hyponatremia; R45.851 Suicidal ideations; F33.2 Major depressive disorder, recurrent severe without psychotic features; E78.5 Hyperlipidemia, unspecified; E66.01 Morbid (severe) obesity due to excess calories; E11.65 Type 2 diabetes mellitus with hyperglycemia; E11.621 Type 2 diabetes mellitus with foot ulcer; L97.519 Non-pressure chronic ulcer of other part of right foot with unspecified severity; I11.0 Hypertensive heart disease with heart failure; I50.9 Heart failure, unspecified; Z71.3 Dietary counseling and surveillance; Z88.5 Allergy status to narcotic agent; Z79.82 Long term (current) use of aspirin; Z79.899 Other long term (current) drug therapy; Z90.49 Acquired absence of other specified parts of digestive tract
CPT/HCPCS: 36415; 71046; 71275; 78452; 80048; 80053; 82962; 83036; 83880; 84484; 85025; 85379; 85610; 85730; 87116; 93005; 93017; 94760; G0378; A9270-GY; A9502; J1170; J1644; J1815; J2270; J2405; J2765; J2785; J7030; J7040; Q9967

== ENCOUNTER 2021-01-10 16:28 | Emergency (ER) | payer MEDICARE ==
[2021-01-10] MEDS ORDERED: ASPIRIN EC 81 MG TAB PO ONE (17:32)
--- NOTE | 2021-01-10 17:38 | Event Note ---
ED Screening Note Date of service: 01/10/21 Time: 17:33 ED Screening Note: This initial assessment/diagnostic orders/clinical plan/treatment(s) is/are subject to change based on patients health status, clinical progression and re- assessment by fellow clinical providers in the ED. Further treatment and workup at subsequent clinical providers discretion. Patient/guardian urged not to elope from the ED as their condition may be serious if not clinically assessed and managed. Initial orders include: 55-year-old female with past medical history of type 2 diabetes she is morbidly obese with a history of Gastric bypass at age 18. She is reporting 3 days of , chest pain URI symptoms vomiting and elevated glucose. She vomited x3 prior to coming to the emergency room and she states her blood sugar has been running in the 400s. Patient also verbalized feeling depressed denies any suicidal ideation. She states that she followed up with her PCP this week and her PCP change her medications. She states that she is not feeling any better. She denies shortness of breath no fever no diarrhea
--- NOTE | 2021-01-10 18:11 | XRay Report ---
CHEST 2 VIEWS INDICATION / CLINICAL INFORMATION: CHEST PAIN. COMPARISON: 04/23/2020 FINDINGS: SUPPORT DEVICES: None. HEART / MEDIASTINUM: No significant abnormality. LUNGS / PLEURA: No significant pulmonary or pleural abnormality. No pneumothorax. ADDITIONAL FINDINGS: No significant additional findings. IMPRESSION: 1. No acute findings. Signer Name: Sherman Coleman MD Signed: 01/10/2021 6:07 PM Workstation Name: [id number]
[2021-01-10 18:24] LABS: Hematocrit 36.9 % (30.3-42.9); Hemoglobin 12.6 gm/dl (10.1-14.3); Mean Corpuscular HGB Conc 34 % (30-34); Mean Corpuscular Volume 84 fl (79-97); Platelet Count 357 K/mm3 (140-440); Red Blood Count 4.37 M/mm3 (3.65-5.03)
[2021-01-10 18:41] LABS: Albumin 3.2 g/dL (3.9-5); Calcium 8.9 mg/dL (8.4-10.2)
[2021-01-10] MEDS ORDERED: MORPHINE 4 MG/1 ML INJ IV ONE (20:24)
[2021-01-10] MEDS ORDERED: INSULIN REGULAR, HUMAN 100 UNITS/1 ML IV ONE (20:24)
[2021-01-10] MEDS ORDERED: KETOROLAC 30 MG/1 ML INJ IV ONE (20:24)
[2021-01-10] MEDS ORDERED: SODIUM CHLORIDE 0.9% 1000 ML 1,000 ML IV ONE (20:24)
[2021-01-10] MEDS ORDERED: ONDANSETRON 4 MG/2 ML INJ IV ONE (20:25)
[2021-01-10] MEDS ORDERED: LOSARTAN 50 MG TAB PO ONE (23:18)
--- NOTE | 2021-01-11 00:03 | Emergency Department Report ---
ED Headache HPI - General Chief Complaint: Chest Pain Stated Complaint: HEADACHES/VOMIT/NAUSEA Time Seen by Provider: 01/10/21 20:05 Source: patient Exam Limitations: no limitations - History of Present Illness Initial Comments: CC: headache, vomiting, depression HPI: THis is a 55 yo with hx of IDDM, HTN, MDD who presents with headache, vomiting, depression. Ms. Kearney has had 3 days of throbbing headache. Daily vomiiting. She has been severely depressed. Anti-depressants are not working. She has seen her PCP Dr. Murillo twice in the last month. She is worried about h igh blood sugar readings 400-500 at home. Patient is tearful during exam. She is stressed at home. Her mother has been mean. She has been having verbal confrontations with mother. She denies SI. Timing/Duration: other (3 days) Quality: moderate Head Injury Location: frontal Recent Head Trauma: occasional headaches Associated Symptoms: nausea/vomiting Allergies/Adverse Reactions: Allergies codeine Allergy (Verified 07/05/15 11:49) Vomiting Home Medications: Ambulatory Orders Aspirin [Aspirin BABY CHEW TAB] 81 mg PO QDAY #30 04/24/20 Ferrous Sulfate [Feosol 325 MG tab] 325 mg PO QDAY #30 04/24/20 Insulin NPH/Regular [NovoLIN 70/30] 33 unit SQ BIDDIAB 30 Days units 04/24/20 Losartan [Cozaar] 50 mg PO QDAY #30 04/24/20 Metoclopramide [Reglan TAB] 10 mg PO Q6H PRN #30 04/24/20 NIFEdipine XL [Procardia Xl] 60 mg PO QDAY #30 tablet 04/24/20 Rosuvastatin Calcium 40 mg PO QDAY #30 04/24/20 Torsemide [Demadex] 20 mg PO BID #60 04/24/20 Lispro Insulin [HumaLOG] See Protocol SUB-Q ACHS 30 Days 04/26/20 Melatonin [Melatonin 5MG TAB] 10 mg PO QHS@2100 #14 tablet 04/26/20 Sertraline [Zoloft] 50 mg PO QDAY #30 tablet 04/26/20 traZODone [Desyrel] 50 mg PO QHS #30 tab 04/26/20 Acetaminophen [Acetaminophen TAB] 1,000 mg PO Q6HR PRN #30 tablet 07/06/20 Albuterol Mdi (or & Nicu Only) [ProAir HFA Inhaler] 2 puff IH QID PRN #1 07/06/20 Insulin NPH/Regular [NovoLIN 70/30] 35 unit SUB-Q BIDDIAB 30 Days units 07/06/20 Metformin HCl [Glucophage] 1,000 mg PO BID #60 07/06/20 Pantoprazole [Protonix TAB] 40 mg PO QDAY #30 tablet 07/06/20 amLODIPine 10 mg PO DAILY #30 tab 07/06/20 carvediloL [Coreg] 12.5 mg PO BID #60 07/06/20 diphenhydrAMINE [Benadryl CAP] 25 mg PO Q8HR PRN #30 capsule 07/06/20 Ondansetron [Zofran Odt] 4 mg PO Q8HR PRN #10 tab.rapdis 01/11/21 traMADoL [Ultram 50 MG tab] 50 mg PO Q6HR PRN #20 tablet 01/11/21 ED Review of Systems ROS: Stated complaint: HEADACHES/VOMIT/NAUSEA Other details as noted in HPI Comment: All other systems reviewed and negative Constitutional: denies: fever, malaise Respiratory: denies: cough, shortness of breath Gastrointestinal: nausea, vomiting. denies: abdominal pain Neurological: headache Psychiatric: depression ED Past Medical Hx - Past Medical History Previous Medical History?: Yes Hx Hypertension: Yes Hx Heart Attack/AMI: No Hx Congestive Heart Failure: Yes Hx Diabetes: Yes Hx Deep Vein Thrombosis: No Hx Liver Disease: No Hx Renal Disease: No Hx Sickle Cell Disease: No Hx Seizures: No Hx Asthma: Yes (inhaler used past tuesday) Hx COPD: No Additional medical history: obesity - Surgical History Past Surgical History?: Yes Hx Pacemaker: No Hx Internal Defibrillator: No Hx Cholecystectomy: Yes Additional Surgical History: c/s x 2. gastric stappling - Social History Smoking Status: Never Smoker Substance Use Type: Alcohol - Medications Home Medications: Home Medications Medication Instructions Recorded Confirmed Last Taken Type Aspirin [Aspirin BABY CHEW TAB] 81 mg PO QDAY #30 04/24/20 Unknown Rx Ferrous Sulfate [Feosol 325 MG tab] 325 mg PO QDAY #30 04/24/20 Unknown Rx Insulin NPH/Regular [NovoLIN 70/30] 33 unit SQ BIDDIAB 30 Days units 04/24/20 Unknown Rx Losartan [Cozaar] 50 mg PO QDAY #30 04/24/20 Unknown Rx Metoclopramide [Reglan TAB] 10 mg PO Q6H PRN #30 04/24/20 Unknown Rx NIFEdipine XL [Procardia Xl] 60 mg PO QDAY #30 tablet 04/24/20 Unknown Rx Rosuvastatin Calcium 40 mg PO QDAY #30 04/24/20 Unknown Rx Torsemide [Demadex] 20 mg PO BID #60 04/24/20 Unknown Rx Lispro Insulin [HumaLOG] See Protocol SUB-Q ACHS 30 Days 04/26/20 Unknown Rx Melatonin [Melatonin 5MG TAB] 10 mg PO QHS@2100 #14 tablet 04/26/20 Unknown Rx Sertraline [Zoloft] 50 mg PO QDAY #30 tablet 04/26/20 Unknown Rx traZODone [Desyrel] 50 mg PO QHS #30 tab 04/26/20 Unknown Rx Acetaminophen [Acetaminophen TAB] 1,000 mg PO Q6HR PRN #30 tablet 07/06/20 Unknown Rx Albuterol Mdi (or & Nicu Only) 2 puff IH QID PRN #1 07/06/20 Unknown Rx [ProAir HFA Inhaler] Insulin NPH/Regular [NovoLIN 70/30] 35 unit SUB-Q BIDDIAB 30 Days 07/06/20 Unknown Rx units Metformin HCl [Glucophage] 1,000 mg PO BID #60 07/06/20 Unknown Rx Pantoprazole [Protonix TAB] 40 mg PO QDAY #30 tablet 07/06/20 Unknown Rx amLODIPine 10 mg PO DAILY #30 tab 07/06/20 Unknown Rx carvediloL [Coreg] 12.5 mg PO BID #60 07/06/20 Unknown Rx diphenhydrAMINE [Benadryl CAP] 25 mg PO Q8HR PRN #30 capsule 07/06/20 Unknown Rx Ondansetron [Zofran Odt] 4 mg PO Q8HR PRN #10 tab.rapdis 01/11/21 Unknown Rx traMADoL [Ultram 50 MG tab] 50 mg PO Q6HR PRN #20 tablet 01/11/21 Unknown Rx ED Physical Exam - General Limitations: No Limitations General appearance: alert, in no apparent distress - Head Head exam: Present: atraumatic, normocephalic - Eye Eye exam: Present: normal appearance - ENT ENT exam: Present: mucous membranes moist - Neck Neck exam: Present: normal inspection, full ROM - Respiratory Respiratory exam: Present: normal lung sounds bilaterally. Absent: respiratory distress, wheezes, rales, rhonchi, stridor - Cardiovascular Cardiovascular Exam: Present: regular rate, normal rhythm, normal heart sounds. Absent: systolic murmur, diastolic murmur, rubs, gallop - GI/Abdominal GI/Abdominal exam: Present: soft, normal bowel sounds. Absent: distended, tenderness, guarding, rebound - Extremities Exam Extremities exam: Present: normal inspection - Back Exam Back exam: Present: normal inspection - Neurological Exam Neurological exam: Present: alert, oriented X3, normal gait - Expanded Neurological Exam Expanded Patient oriented to: Present: person, place, time Speech: Present: fluid speech Cerebellar function: Finger to Nose: Normal Sensory exam: Upper Extremity Light Touch: Normal Best Eye Response (Karlee): (4) open spontaneously Best Motor Response (Karlee): (6) obeys commands Best Verbal Response ([place]): (5) oriented Karlee Total: 15 - Psychiatric Psychiatric exam: Present: normal affect, depressed - Skin Skin exam: Present: warm, dry, intact, normal color. Absent: rash ED Course Vital Signs 01/10/21 01/10/21 01/10/21 17:11 17:12 20:09 Temperature 99.1 F Pulse Rate 85 Respiratory 20 18 Rate Blood Pressure 193/86 O2 Sat by Pulse 98 Oximetry 01/10/21 01/10/21 01/10/21 20:44 21:00 21:30 Temperature Pulse Rate 80 78 76 Respiratory 11 L 12 14 Rate Blood Pressure 191/95 197/98 O2 Sat by Pulse 98 98 99 Oximetry 01/10/21 01/10/21 01/10/21 22:00 22:30 23:00 Temperature Pulse Rate 72 73 74 Respiratory 17 13 12 Rate Blood Pressure 196/102 204/101 192/98 O2 Sat by Pulse 99 98 99 Oximetry ED Medical Decision Making - Lab Data Result diagrams: 01/10/21 17:44 01/10/21 17:44 Laboratory Results - last 24 hr 01/10/21 01/10/21 01/10/21 17:44 17:44 17:44 WBC 8.5 RBC 4.37 Hgb 12.6 Hct 36.9 MCV 84 MCH 29 MCHC 34 RDW 13.0 L Plt Count 357 Sodium 128 L Potassium 4.2 Chloride 91.2 L Carbon Dioxide 31 H Anion Gap 10 BUN 30 H Creatinine 1.3 H Estimated GFR 52 BUN/Creatinine Ratio 23 Glucose 534 H* Calcium 8.9 Total Bilirubin 0.50 AST 12 ALT 10 Alkaline Phosphatase 106 Troponin T Total Protein 7.0 Albumin 3.2 L Albumin/Globulin Ratio 0.8 Lipase 94 H 01/10/21 17:51 WBC RBC Hgb Hct MCV MCH MCHC RDW Plt Count Sodium Potassium Chloride Carbon Dioxide Anion Gap BUN Creatinine Estimated GFR BUN/Creatinine Ratio Glucose Calcium Total Bilirubin AST ALT Alkaline Phosphatase Troponin T < 0.010 Total Protein Albumin Albumin/Globulin Ratio Lipase - EKG Data -: EKG Interpreted by Me EKG shows normal: sinus rhythm, axis, intervals, QRS complexes, ST-T waves Rate: normal - EKG Data 01/10/21 23:59 EKG obtained 1715 EKG interpreted by me NSR 70 bpm nl axis nl intervals +LVH no ST elevation nonspecific T wave pattern - Radiology Data Radiology results: report reviewed cxr: no acute findings - Medical Decision Making 1. tension headache: Ms. Kearney has been evaluated on previous occasion here in the ER for headache. I do not suspect dangerous headache such as subarachnoid hemorrhage intracranial tumor. Patient's headache resolved with blood pressure control and analgesia prior in the ER 2. Acute hyperglycemia without acidosis: Suspect dietary indiscretion. Patient received IV fluid therapy and IV insulin which did improve blood sugar 3. Hypertensive urgency: Unclear if dietary indiscretion or medication noncompliance is concerned. No evidence of endorgan damage. 4. Acute depression: Encourage patient to continue antidepressants until she sees improvement in her mood. It appears that she has started a new medication in order to address her major depressive disorder. Patient discharged to follow-up PCP Dr. Murillo Prescriptions provided tramadol for headache and chronic pain, Zofran for antiemetic Critical care attestation.: If time is entered above; I have spent that time in minutes in the direct care of this critically ill patient, excluding procedure time. ED Disposition Clinical Impression: MDD (major depressive disorder), Tension headache, Hypertensive urgency, Acute hyperglycemia Disposition: TO HOME OR SELFCARE Is pt being admited?: No Does the pt Need Aspirin: No Condition: Stable Prescriptions: traMADoL [Ultram 50 MG tab] 50 mg PO Q6HR PRN #20 tablet PRN Reason: Pain Ondansetron [Zofran Odt] 4 mg PO Q8HR PRN #10 tab.rapdis PRN Reason: Nausea Referrals: JOSE M MURILLO MD [Primary Care Provider] - 3-5 Days
[2021-01-11 01:18] VITALS: BP 180/93
== END 2021-01-11 01:18 | disposition home or self-care (01) ==
LOC: ED 16:28
DX: G44.209 Tension-type headache, unspecified, not intractable (principal); F33.2 Major depressive disorder, recurrent severe without psychotic features; I16.0 Hypertensive urgency; E11.65 Type 2 diabetes mellitus with hyperglycemia; I11.0 Hypertensive heart disease with heart failure; I50.9 Heart failure, unspecified; J45.909 Unspecified asthma, uncomplicated; E66.9 Obesity, unspecified; Z68.42 Body mass index [BMI] 45.0-49.9, adult; Z88.6 Allergy status to analgesic agent; Z79.899 Other long term (current) drug therapy; Z90.49 Acquired absence of other specified parts of digestive tract; Z98.890 Other specified postprocedural states
CPT/HCPCS: 36415; 71046; 80053; 82962; 83690; 84484; 85027; 93005; 96361; 96374; 96375; 99284; J1885; J2270; J2405; J7030; J1815